=== PATIENT | female | born 1975 | race Caucasian/White ===

== ENCOUNTER 2016-05-25 10:53 | Outpatient (CLI) | payer MEDICAID | END 2016-05-25 10:54 | disposition home or self-care (01) | DX: F90.2 Attention-deficit hyperactivity disorder, combined type (principal) ==

== ENCOUNTER 2017-02-16 08:00 | Outpatient (CLI) | payer MEDICAID ==
[2017-02-16 15:04] LABS: HGB - HEMOGLOBIN 12.7 g/dL (12.0-16.0); MEAN CORPUSCULAR HEMOGLOBIN 28.3 pg (27.0-31.0); MEAN CORPUSCULAR HGB CONC 33.3 g/dL (32.0-36.0); MEAN CORPUSCULAR VOLUME 84.9 fL (81.0-99.0); MEAN PLATELET VOLUME 8.8 fL (7.9-10.8); RED BLOOD COUNT 4.51 10^6/uL (4.20-5.40); RED CELL DISTRIBUTION WIDTH 13.6 % (12.0-15.0); WHITE BLOOD COUNT 6.6 x10^3/uL (4.8-10.8)
[2017-02-16 15:12] LABS: ALBUMIN 3.8 g/dL (3.2-5.5); ALBUMIN/GLOBULIN RATIO 1.1 (1.0-2.2); BILIRUBIN,TOTAL 0.3 mg/dL (0.2-1.0); CALCIUM 9.6 mg/dL (8.5-10.3); CREATININE 0.7 mg/dL (0.4-1.0); TOTAL PROTEIN 7.3 g/dL (6.7-8.2)
== END 2017-02-16 08:01 | disposition home or self-care (01) ==
LOC: LAB.N 08:00
PROVIDERS: ATTEND Nurse Practitioner Psychiatric/Mental Health
DX: F33.1 Major depressive disorder, recurrent, moderate (principal); F90.2 Attention-deficit hyperactivity disorder, combined type
CPT/HCPCS: 36415; 80053; 82306; 84443; 85025

== ENCOUNTER 2018-02-12 02:59 | Outpatient (CLI) | payer MEDICAID | END 2018-02-12 03:00 | disposition critical access hospital (66) | LOC: EMS 02:59 | PROVIDERS: ATTEND Surgery | DX: R09.89 Other specified symptoms and signs involving the circulatory and respiratory systems (principal) | CPT/HCPCS: A0425; A0427; A0999 ==

== ENCOUNTER 2018-03-06 08:00 | Outpatient (CLI) | payer MEDICAID ==
[2018-03-06 14:31] LABS: CHOLESTEROL 234 mg/dL; HDL CHOLESTEROL 39 mg/dL; LDL CHOLESTEROL,CALCULATED 140 mg/dL; LDL/HDL RATIO 3.6 (<4.4); VLDL CHOLESTEROL 55 mg/dL
[2018-03-06 15:32] LABS: HB2 TOTAL 13.6 g/dL; HEMOGLOBIN A1C 0.47 g/dL; HEMOGLOBIN A1C % 5.3 % (4.6-6.2)
== END 2018-03-06 23:59 | disposition home or self-care (01) ==
LOC: LAB.N 08:00
PROVIDERS: ATTEND Physician Assistant Medical
DX: Z00.00 Encounter for general adult medical examination without abnormal findings (principal); R73.9 Hyperglycemia, unspecified
CPT/HCPCS: 36415; 80061; 83036; 83721

== ENCOUNTER 2018-07-20 08:00 | Outpatient (CLI) | payer MEDICAID ==
[2018-07-20 12:42] LABS: HGB - HEMOGLOBIN 10.2 g/dL (12.0-16.0); MEAN CORPUSCULAR HEMOGLOBIN 21.7 pg (27.0-31.0); MEAN CORPUSCULAR HGB CONC 31.7 g/dL (32.0-36.0); MEAN CORPUSCULAR VOLUME 68.3 fL (81.0-99.0); MEAN PLATELET VOLUME 8.8 fL (7.9-10.8); RED BLOOD COUNT 4.68 10^6/uL (4.20-5.40); RED CELL DISTRIBUTION WIDTH 16.5 % (12.0-15.0)
[2018-07-20 13:04] LABS: CRP - C-REACTIVE PROTEIN < 1.0 mg/dL (0-1.0)
[2018-07-20 13:05] LABS: URIC ACID 6.7 mg/dL (2.6-7.2)
== END 2018-07-20 23:59 | disposition home or self-care (01) ==
LOC: LAB.WCP 08:00
PROVIDERS: ATTEND Family Medicine
DX: M79.672 Pain in left foot (principal)
CPT/HCPCS: 36415; 84550; 85027; 85651; 86140; 86200

== ENCOUNTER 2018-07-20 11:05 | Outpatient (CLI) | payer MEDICAID ==
--- NOTE | 2018-07-20 15:22 | XRAY Report ---
Reason: LUMBAR RADICULOPATHY,HIP JOINT PAIN,FOOT PAIN RIGH Procedure Date: 07/20/2018 Accession Number: [id number] / [id number] Procedure: XR - Foot 2 View RT CPT Code: FULL RESULT: EXAM: RIGHT FOOT RADIOGRAPHY EXAM DATE: 07/20/2018 11:34 AM. CLINICAL HISTORY: LUMBAR RADICULOPATHY,HIP JOINT PAIN,FOOT PAIN RIGHT. COMPARISON: None. TECHNIQUE: 2 views. FINDINGS: Bones: Achilles tendon and plantar heel spur. Periosteal thickening second metatarsus which may be from old fracture. Joints: Normal. No subluxations. Soft Tissues: Normal. No soft tissue swelling. IMPRESSION: 1. Heel spurs. If there is clinical concern for fracture 3 views are recommended RADIA
--- NOTE | 2018-07-21 13:26 | XRAY Report ---
Reason: LUMBAR RADICULOPATHY,HIP JOINT PAIN,FOOT PAIN RIGH Procedure Date: 07/20/2018 Accession Number: [id number] / [id number] Procedure: XR - Hip w/Pelvis 2-3V RT CPT Code: FULL RESULT: EXAM: RIGHT HIP RADIOGRAPHY EXAM DATE: 07/20/2018 11:35 AM. CLINICAL HISTORY: LUMBAR RADICULOPATHY,HIP JOINT PAIN,FOOT PAIN RIGH. COMPARISON: 10/13/2014 10:21 AM. TECHNIQUE: 2 views. FINDINGS: Bones: Some osteophytes off of the acetabular rim. There may be some subtle subchondral cystic change in the superior roof of the acetabulum. Bones are otherwise normal. Joints: Normal. No dislocation. The hip joint space is preserved. Soft Tissues: Normal. No soft tissue swelling. IMPRESSION: Some osteophyte spurring off of the acetabular roof, and likely some tiny subchondral cystic change suggests some early osteoarthritis, but no joint space narrowing at this time. No fractures. RADIA
--- NOTE | 2018-07-21 14:13 | XRAY Report ---
Reason: LUMBAR RADICULOPATHY,HIP JOINT PAIN,FOOT PAIN [facility] Procedure Date: 07/20/2018 Accession Number: [id number] / [id number] Procedure: XR - Lumbar Spine 2 View CPT Code: FULL RESULT: EXAM: LUMBOSACRAL SPINE RADIOGRAPHY EXAM DATE: 07/20/2018 11:35 AM. CLINICAL HISTORY: Lumbar radiculopathy, hip joint pain, foot pain, right. COMPARISONS: None. TECHNIQUE: 3 views. FINDINGS: Alignment: Normal. No spondylolisthesis or scoliosis. Bones: There are hypoplastic ribs on T12 with transitional anatomy at the lumbosacral junction best described as transitional L5 which is partially sacralized. No fractures or bone lesions. Disks: There is mild disk space narrowing with mild circumferential osteophyte noted at L2-L3. Facets: No degenerative changes. Sacroiliac Joints: Unremarkable. Soft Tissues: Normal. The visualized bowel gas pattern is normal. IMPRESSION: 1. Hypoplastic ribs on T12 with transitional anatomy at the lumbosacral junction best described as transitional L5, which is partially sacralized. 2. Mild disk space narrowing and dorsal osteophytosis at L2-L3. 3. No fractures appreciated. [facility]IA
== END 2018-07-20 11:06 | disposition home or self-care (01) ==
LOC: DI 11:05
PROVIDERS: ATTEND Family Medicine
DX: M54.16 Radiculopathy, lumbar region (principal); M48.061 Spinal stenosis, lumbar region without neurogenic claudication; M25.78 Osteophyte, vertebrae; M25.551 Pain in right hip; M25.751 Osteophyte, right hip; M79.671 Pain in right foot; M77.31 Calcaneal spur, right foot; M79.672 Pain in left foot
CPT/HCPCS: 36415; 72100; 84550; 85027; 85651; 86140; 86200

== ENCOUNTER 2019-02-19 13:06 | Outpatient (CLI) | payer MEDICAID | END 2019-02-19 23:59 | disposition home or self-care (01) | LOC: LAB.R 13:06 | PROVIDERS: ATTEND Physician Assistant Medical | DX: J02.9 Acute pharyngitis, unspecified (principal) | CPT/HCPCS: 87070 ==

== ENCOUNTER 2019-05-01 13:06 | Outpatient (CLI) | payer MEDICAID | END 2019-05-01 13:07 | disposition home or self-care (01) | LOC: RT 13:06 | PROVIDERS: ATTEND Physician Assistant Medical | DX: J45.909 Unspecified asthma, uncomplicated (principal) | CPT/HCPCS: 94010 ==

== ENCOUNTER 2019-10-25 07:00 | Outpatient (CLI) | payer MEDICAID ==
[2019-10-25 19:59] LABS: H. PYLORIS ANTIGEN STL NEGATIVE (Negative)
== END 2019-10-25 23:59 | disposition home or self-care (01) ==
LOC: LAB.R 07:00
PROVIDERS: ATTEND Nurse Practitioner Family
DX: K21.9 Gastro-esophageal reflux disease without esophagitis (principal)
CPT/HCPCS: 87338

== ENCOUNTER 2020-01-29 11:31 | Outpatient (CLI) | payer MEDICAID ==
--- NOTE | 2020-01-29 14:46 | CT Report ---
PROCEDURE: LUMBAR SPINE WO INDICATIONS: LOW BACK PAIN TECHNIQUE: Noncontrast 3 mm thick sections acquired from the T12 level to the sacrum. Sagittal and coronal refo rmats were constructed. For radiation dose reduction, the following was used: automated exposure co ntrol, adjustment of mA and/or kV according to patient size. COMPARISON: Lumbar spine plain from radiographs 07/21/2018. FINDINGS: Image quality: Excellent. Bones: Transitional anatomy with sacralization of the L5 vertebral body redemonstrated. There is nor mal bony alignment. No acute vertebral body compression fractures. No suspicious lytic or blastic b tali lesions. No pars defects. T12-L1: Normal in appearance. L1-L2: Normal in appearance. L2-L3: Loss of disc height. Vacuum disc phenomenon. Mild, diffuse disc bulge. Mild bilateral facet hypertrophy. Mild narrowing of the central canal. Moderate right and [id number] left neural foraminal narrowing with slight compression of the exiting left L2 nerve root. L3-L4: Disc height is normal. Mild, diffuse disc bulge. Mild bilateral facet hypertrophy. Mild narr owing of the central canal. Severe right and moderate left neural foraminal narrowing with slight com pression of the exiting right L3 nerve root. L4-L5: Slight loss of disc height. Vacuum disc phenomenon. Mild, diffuse disc bulge. Mild bilateral facet hypertrophy. No central stenosis. Severe bilateral neural foraminal narrowing with compression of the exiting L4 nerve roots. L5-S1: No central stenosis. No neural foraminal narrowing. No neural compression. Soft tissues: Possible prominence of the uterus. No retroperitoneal masses or hematomas. Visualized aorta is normal in caliber. IMPRESSION: 1. 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 2. Multilevel degenerative disease. 3. Multilevel facet arthropathy. 4. No significant central canal narrowing. 5. Moderate to severe left L2-L3 neural foraminal narrowing with slight compression of the exiting le ft L2 nerve root. Severe right L3-L4 neural foraminal narrowing with compression of the exiting right L3 nerve root. Severe bilateral L4-L5 neural foraminal narrowing with compression of the exiting lucía ateral L4 nerve roots. 6. Possible prominence of the uterus. Recommend pelvic ultrasound for further evaluation. Reviewed by: Jimena Obregno MD, PhD on 01/29/2020 2:45 PM PST Approved by: Jimena Obregon MD, PhD on 01/29/2020 2:45 PM PST Station ID: [id number]
== END 2020-01-29 11:32 | disposition home or self-care (01) ==
LOC: DI 11:31
PROVIDERS: ATTEND Nurse Practitioner Family
DX: M51.36 Other intervertebral disc degeneration, lumbar region (principal)
CPT/HCPCS: 72131

== ENCOUNTER 2020-02-15 14:19 | Outpatient (CLI) | payer MEDICAID ==
--- NOTE | 2020-02-15 17:15 | Ultrasound Report ---
PROCEDURE: Pelvic w/Transvaginal INDICATIONS: ENLARGED UTERUS TECHNIQUE: Real-time scanning was performed of the pelvic organs, with image documentation. Additional endovagi nal scanning was necessary due to incomplete visualization of the adnexal and endometrial structures by transabdominal scanning. COMPARISON: Correlation is made with lumbar CT, 01/29/2020. FINDINGS: Transabdominal scanning: Limited scanning through the kidneys shows no hydronephrosis. No pathologi c free abdominal or pelvic fluid. Endovaginal scanning: Uterus: Uterus is enlarged, measuring 15.5 x 12.4 x 14.7 cm. The endometrium measures 5 mm in combin ed thickness. Low echogenicity uterine lesions are seen, which are attributed to fibroids and which measure as foll ows: Right anterior uterus, intramural, 8.9 x 4.1 x 4.6 cm Mid posterior uterus, intramural, 7.5 x 8.7 x 8.5 cm Ovaries: The ovary can be seen. Scan quality is limited by body habitus and overlying bowel gas. IMPRESSION: Enlarged, fibroid uterus. Neither ovary can be seen. Reviewed by: Nader Norieag MD on 02/15/2020 4:14 PM [facility] Approved by: Nader Noriega MD on 02/15/2020 4:14 PM [facility] Station ID: [id number]
== END 2020-02-15 14:20 | disposition home or self-care (01) ==
LOC: DI 14:19
PROVIDERS: ATTEND Nurse Practitioner Family
DX: D25.1 Intramural leiomyoma of uterus (principal)

== ENCOUNTER 2020-03-24 08:00 | Outpatient (CLI) | payer MEDICAID | END 2020-03-24 23:59 | disposition home or self-care (01) | LOC: LAB.R 08:00 | PROVIDERS: ATTEND Nurse Practitioner Family | DX: R19.7 Diarrhea, unspecified (principal) | CPT/HCPCS: 81599; 87045; 87046; 87177; 87209; 87427; 87493 ==

== ENCOUNTER 2020-09-08 07:52 | Day surgery (SDC) | payer MEDICAID ==
[~2020-09-08 07:52] MED LIST: ACETAMINOPHEN 1,000 MG/100 ML 100 ML IV ONE; CELECOXIB 100 MG CAPSULE PO ONE; GABAPENTIN 400 MG CAPSULE ONE; ceFAZolin 2 GM/50 ML 2 GM/50 ML BAG IV ONE
[2020-09-08] MEDS ORDERED: LACTATED RINGERS 1,000 ML IV ONE ×2 (08:41→11:44)
[2020-09-08 08:42] LABS: HCT - HEMATOCRIT 27.8 % (37.0-47.0); MEAN CORPUSCULAR HGB CONC 25.2 g/dL (32.0-36.0); MEAN CORPUSCULAR VOLUME 59.4 fL (81.0-99.0); MEAN PLATELET VOLUME 8.8 fL (7.9-10.8); RED BLOOD COUNT 4.68 10^6/uL (4.20-5.40); RED CELL DISTRIBUTION WIDTH 22.1 % (12.0-15.0); WHITE BLOOD COUNT 11.4 x10^3/uL (4.8-10.8)
[2020-09-08 08:43] LABS: HCG UR QUAL NEGATIVE
[2020-09-08] MEDS ORDERED: MIDAZOLAM 2 MG/2 ML VIAL ONE (09:06)
[2020-09-08] MEDS ORDERED: fentaNYL 100 MCG/2 ML VIAL ONE (09:06)
[2020-09-08] MEDS ORDERED: PROPOFOL 200 MG/20 ML VIAL IVP ONE (09:07)
[2020-09-08] MEDS ORDERED: LIDOCAINE-MPF 2% 5 ML VIAL ONE (09:07)
[2020-09-08 09:11] LABS: ALBUMIN/GLOBULIN RATIO 0.9 (1.0-2.2); BILIRUBIN,TOTAL 0.5 mg/dL (0.2-1.0); CALCIUM 9.2 mg/dL (8.5-10.3); CREATININE 0.9 mg/dL (0.4-1.0); POTASSIUM 3.9 mmol/L (3.5-5.0); TOTAL PROTEIN 8.3 g/dL (6.7-8.2)
--- NOTE | 2020-09-08 09:24 | ANESTHESIA ---
Pre-Anesthesia VS, & Labs - Diagnosis menorrhagia, abnormal uterine bleeding - Procedure hysterscopy, D&C Height: 5 ft 5 in Weight (kg): 120.6 kg Body Mass Index: 44.2 BMI Classification: Morbidly Obese - NPO >8 hours - Is Patient ?: No - Lab Results Current Lab Results: Laboratory Tests 09/08/20 08:38: POC Whole Bld Glucose 121 H 09/08/20 08:36: Sodium 136, Potassium 3.9, Chloride 101, Carbon Dioxide 23, Anion Gap 12.0, BUN 15, Creatinine 0.9, Estimated GFR (MDRD) 68 L, Glucose 117 H , Calcium 9.2, Total Bilirubin 0.5, AST 15, ALT 12, Alkaline Phosphatase 62, Total Protein 8.3 H, Albumin 4.0, Globulin 4.3 H, Albumin/Globulin Ratio 0.9 L 09/08/20 08:36: WBC 11.4 H, RBC 4.68, Hgb 7.0 L*, Hct 27.8 L, MCV 59.4 L, MCH 15.0 L, MCHC 25.2 L, RDW 22.1 H, Plt Count 515 H, MPV 8.8 Fish Bones: 09/08/20 08:36 09/08/20 08:36 Home Medications and Allergies Home Medications: Ambulatory Orders Acetaminophen [Tylenol Extra Strength] 500 mg PO 09/07/20 DULoxetine [Cymbalta] 09/07/20 Fluticasone [Flonase] 1 sprays CLARE BID PRN 09/07/20 Meloxicam [Mobic] 1 tablet PO DAILY PRN 09/07/20 Montelukast [Singulair] 10 mg PO QPM 09/07/20 Omeprazole [PriLOSEC] 20 mg PO DAILY 09/07/20 buPROPion [Wellbutrin Xl] 150 mg PO DAILY 09/07/20 Acetaminophen [Tylenol Extra Strength] 500 mg PO 09/07/20 DULoxetine [Cymbalta] 09/07/20 Fluticasone [Flonase] 1 sprays CLARE BID PRN 09/07/20 Meloxicam [Mobic] 1 tablet PO DAILY PRN 09/07/20 Montelukast [Singulair] 10 mg PO QPM 09/07/20 Omeprazole [PriLOSEC] 20 mg PO DAILY 09/07/20 buPROPion [Wellbutrin Xl] 150 mg PO DAILY 09/07/20 Allergies/Adverse Reactions: Allergies Allergy/AdvReac Type Severity Reaction Status Date / Time No Known Drug Allergies Allergy Verified 02/12/18 03:23 Anes History & Medical History - Anesthetic History Anesthesia Complications: reports: No previous complications - Medical History Cardiovascular: reports: None Pulmonary: reports: Asthma Gastrointestinal: reports: GERD Urinary: reports: None Neuro: reports: Headaches Musculoskeletal: reports: None Endocrine/Autoimmune: reports: None Blood Disorders: reports: Anemia Skin: reports: None Smoking Status: Never smoker Psychosocial: reports: Depression History of Cancer?: No - Surgical History Gynecologic: reports: Oophrectomy Exam General: Alert, Oriented x3, Cooperative, No acute distress Dental: WNL Mouth Openin Fingerbreadth Neck Mobility: Normal Mallampati classification: II Thyromental Distance: 4-6 cm Respiratory: Lungs clear, Normal breath sounds, No respiratory distress, No accessory muscle use Cardiovascular: Regular rate, Normal S1, Normal S2, No murmurs Mental/Cognitive Status: Alert/Oriented X3, Normal for patient Plan Anesthesia Type: General Consent for Procedure(s) Verified and Reviewed: Yes Code Status: Attempt Resuscitation ASA classification: 2-Mild systemic disease Is this case an emergency?: No
[2020-09-08] MEDS ORDERED: BUPIVACAINE 0.5% PF 30 ML VIAL ONE (10:07)
[2020-09-08] MEDS ORDERED: LIDOCAINE 2%-EPI 1:100000 20 ML MDV ONE (10:07)
[2020-09-08] MEDS ORDERED: SILVER NITRATE APPLICATOR TOP ONE (10:08)
[2020-09-08] MEDS ORDERED: ONDANSETRON 4 MG/2 ML VIAL IVP PRN (10:32)
[2020-09-08] MEDS ORDERED: NALOXONE 0.4 MG/ML VIAL IVP PRN (10:32)
[2020-09-08] MEDS ORDERED: HYDROmorphone 0.5 MG/0.5 ML SYRINGE IVP PRN ×2 (10:32→11:45)
[2020-09-08] MEDS ORDERED: MORPHINE 2 MG/ML CARPUJECT IVP PRN (10:32)
[2020-09-08] MEDS ORDERED: ATROPINE ABBOJECT 1 MG/10 ML SYRINGE IVP PRN (10:32)
[2020-09-08] MEDS ORDERED: ePHEDrine 50 MG/ML VIAL IVP PRN (10:32)
[2020-09-08] MEDS ORDERED: fentaNYL 100 MCG/2 ML VIAL IVP PRN (10:32)
[2020-09-08] MEDS ORDERED: DEXAMETHASONE 4 MG/ML VIAL ONE (10:54)
[2020-09-08] MEDS ORDERED: LACTATED RINGERS 1,000 ML IV SCH ×2 (11:00→16:00)
[2020-09-08] MEDS ORDERED: LIDOCAINE 2%-EPI 1:100000 20 ML MDV SUBQ ONE (11:04)
[2020-09-08] MEDS ORDERED: BUPIVACAINE 0.5% PF 30 ML VIAL INFIL ONE (11:05)
[2020-09-08] MEDS ORDERED: TRANEXAMIC ACID 1,000 MG/10 ML VIAL ONE (11:36)
[2020-09-08] MEDS ORDERED: METHYLERGONOVINE 0.2 MG/ML VIAL ONE (11:37)
[2020-09-08] MEDS ORDERED: SODIUM CHLORIDE 0.9% 1,000 ML IV ONE (11:45)
[2020-09-08] MEDS ORDERED: KETOROLAC 30 MG/ML VIAL IVP PRN (11:47)
--- NOTE | 2020-09-08 11:51 | OPERATIVE REPORT ---
Operative Report - General Procedure Date: 09/08/20 Planned Procedure: Menorrhagia fibroid uterus Procedure Performed: Hysteroscopy with endometrial sampling with MyoSure Post Op Diagnosis: Submucosal fibroid large - Procedure Note Primary Surgeon: David Loyola MD Anesthesia Provider: Kwaku John CRNA Anesthesia Technique: General LMA Pathology: Endometrial curettings IV Fluids (mL): 900 Estimated Blood Loss (mL): 150 Indications: Menorrhagia Findings: Large 14-week size uterus with a submucosal fibroid Complications: 1000 cc deficit of saline from her hysteroscopy. - Other Other Information/Narrative: Procedure, following adequate general anesthesia via LMA patient was placed in the Dorsal lithotomy in [facility]. At this point she was prepped and draped in the usual fashion. A Timeout was performed at which time concerns were addressed. The concerned about her large fibroid uterus was reviewed. A speculum was then placed in vagina cervix visualized the cervix was noted to reside high in the pelvic cavity. It was grasped with a single-tooth tenaculum. At this point the cervix was identified. 5 cc of 40% Marcaine with epinephrine was injected in both uterosacral ligaments. The uterus was sounded to roughly 8 cm. At this point the hysteroscope was introduced and what appeared to be a false passages noted in the posterior aspect of the endocervical canal. The endocervical canal as well as the endometrial canal was identified and what appeared to be the left cornu was isolated. There was difficulty in viewing the entire endometrial cavity as it was filled predominantly with a submucosal fibroid. At this point the endometrial cavity was sampled with the MyoSure. There is a deficit of roughly 1000 cc of normal saline noted for this reason was determined that ceasing the procedure would be the judicious process. She was then administered 0.4 mg of Methergine IM as well as given TXA intravenous. At this point the cervix was released from the single-tooth tenaculum. There was no evidence of active bleeding at this time. Procedure was terminated patient was taken recovery sponge and needle counts were correct
[2020-09-08 12:10] LABS: HCT - HEMATOCRIT 28.8 % (37.0-47.0); HGB - HEMOGLOBIN 7.5 g/dL (12.0-16.0)
[2020-09-08 12:31] LABS: % IRON SATURATION 36 % (20-50); IRON 151 ug/dL (28-170); TOTAL IRON BINDING CAPACITY 416 ug/dL (250-450); TRANSFERRIN 297 mg/dL (192-382)
[2020-09-08] MEDS: ACETAMINOPHEN 500 MG TABLET PO SCH ×2 (14:44→21:51)
[2020-09-08] MEDS: oxyCODONE 5 MG TABLET PO PRN ×2 (14:44→20:52)
[2020-09-08] MEDS ORDERED: PHENOL THROAT SPRAY 177 ML MM PRN (14:45)
[2020-09-08] MEDS ORDERED: IRON DEXTRAN 1,000 MG in SODIUM CHLORIDE 0.9% 250 ML IV ONE (16:00)
--- NOTE | 2020-09-08 16:02 | ANESTHESIA POST OP EVALUATION ---
Anesthesia Post Eval - Post Anesthesia Eval Vitals: Last Vital Signs Temp 36.6 C 09/08/20 12:56 Pulse 81 09/08/20 12:56 Resp 13 09/08/20 12:56 BP 129/74 09/08/20 12:56 Pulse Ox 97 09/08/20 12:56 CV Function Including HR & BP: Stable Pain Control: Satisfactory Nausea & Vomiting: Negative Mental Status: Baseline Respiratory Status: Airway Patent Hydration Status: Satisfactory Anesthesia Complications: None
[2020-09-08] MEDS: ONDANSETRON 4 MG/2 ML VIAL IVP PRN ×2 (17:11→23:38)
[2020-09-08] MEDS: DOCUSATE SODIUM 100 MG CAPSULE PO SCH (21:51)
[2020-09-09] MEDS: ACETAMINOPHEN 500 MG TABLET PO SCH (05:32)
[2020-09-09] MEDS: DOCUSATE SODIUM 100 MG CAPSULE PO SCH (07:59)
[2020-09-09] MEDS: ONDANSETRON 4 MG/2 ML VIAL IVP PRN (07:59)
[2020-09-09] MEDS: oxyCODONE 5 MG TABLET PO PRN (07:59)
[2020-09-09 08:03] VITALS: BP 113/63
[2020-09-09 08:54] LABS: BASOPHILS # (AUTO) 0.1 10^3/uL (0.0-0.1); BASOPHILS % (AUTO) 0.5 %; EOSINOPHILS # (AUTO) 0.1 10^3/uL (0.0-0.7); EOSINOPHILS % (AUTO) 0.9 %; HCT - HEMATOCRIT 30.7 % (37.0-47.0); HGB - HEMOGLOBIN 8.3 g/dL (12.0-16.0); LYMPHOCYTES # (AUTO) 3.5 10^3/uL (1.5-3.5); LYMPHOCYTES % (AUTO) 28.7 %; MEAN CORPUSCULAR HEMOGLOBIN 17.4 pg (27.0-31.0); MEAN CORPUSCULAR VOLUME 64.2 fL (81.0-99.0); MEAN PLATELET VOLUME 9.1 fL (7.9-10.8); MONOCYTES # (AUTO) 0.6 10^3/uL (0.0-1.0); NEUTROPHILS # (AUTO) 7.8 10^3/uL (1.5-6.6); NEUTROPHILS % (AUTO) 64.1 %; PLT - PLATELET COUNT 450 10^3/uL (130-450); RED BLOOD COUNT 4.78 10^6/uL (4.20-5.40); RED CELL DISTRIBUTION WIDTH 26.5 % (12.0-15.0); WHITE BLOOD COUNT 12.2 x10^3/uL (4.8-10.8)
[2020-09-09 10:01] LABS: PLATELET ESTIMATE, MANUAL NORMAL (130-450,000) (NORMAL); PLATELET MORPHOLOGY NORMAL APPEARANCE (NORMAL); SLIDE REVIEW? Indicated
[2020-09-09 10:02] LABS: WBC MORPHOLOGY (MULTIPLE) NORMAL APPEARANCE (NORMAL)
== END 2020-09-09 10:45 | disposition home or self-care (01) ==
LOC: SDS 07:52 → MS3 14:27 → SDS 09-09 10:45
PROVIDERS: ATTEND Obstetrics & Gynecology
PROC: 0UDB8ZX Extraction of Endometrium, Via Natural or Artificial Opening Endoscopic, Diagnostic (ICD-10-PCS; principal; 2020-09-08 10:30)
DX: N93.9 Abnormal uterine and vaginal bleeding, unspecified (principal); D25.0 Submucous leiomyoma of uterus; N92.0 Excessive and frequent menstruation with regular cycle; E66.01 Morbid (severe) obesity due to excess calories; Z68.41 Body mass index [BMI] 40.0-44.9, adult
CPT/HCPCS: 36415; 58558; 80053; 81025; 83540; 84466; 85014; 85018; 85025; 85027; 86850; 86900; 86901; 86920; 87635; A9270; J0131; J0690; J1750; J2210; J7120; P9016

== ENCOUNTER 2021-02-09 08:10 | Outpatient (CLI) | payer MEDICAID ==
[2021-02-09 14:52] LABS: BASOPHILS # (AUTO) 0.1 10^3/uL (0.0-0.1); BASOPHILS % (AUTO) 0.7 %; EOSINOPHILS # (AUTO) 0.5 10^3/uL (0.0-0.7); EOSINOPHILS % (AUTO) 5.1 %; HCT - HEMATOCRIT 35.3 % (37.0-47.0); HGB - HEMOGLOBIN 9.9 g/dL (12.0-16.0); LYMPHOCYTES # (AUTO) 3.3 10^3/uL (1.5-3.5); LYMPHOCYTES % (AUTO) 31.1 %; MEAN CORPUSCULAR HEMOGLOBIN 20.4 pg (27.0-31.0); MEAN CORPUSCULAR VOLUME 72.6 fL (81.0-99.0); MONOCYTES # (AUTO) 0.7 10^3/uL (0.0-1.0); MONOCYTES % (AUTO) 6.2 %; NEUTROPHILS % (AUTO) 56.5 %; PLT - PLATELET COUNT 429 10^3/uL (130-450); RED BLOOD COUNT 4.86 10^6/uL (4.20-5.40); RED CELL DISTRIBUTION WIDTH 16.9 % (12.0-15.0); WHITE BLOOD COUNT 10.5 x10^3/uL (4.8-10.8)
[2021-02-09 15:25] LABS: ALKALINE PHOSPHATASE 56 IU/L (42-121); ALT ALANINE AMINOTRANSFERASE 14 IU/L (10-60); AST ASPARTATE AMINOTRANSFERASE 15 IU/L (10-42); BILIRUBIN,TOTAL 0.5 mg/dL (0.2-1.0); BUN - BLOOD UREA NITROGEN 14 mg/dL (6-20); CALCIUM 9.1 mg/dL (8.5-10.3); CARBON DIOXIDE - CO2 22 mmol/L (21-32); CHLORIDE 103 mmol/L (101-111); CHOL/HDL RATIO 4.8 (<4.4); CHOLESTEROL 198 mg/dL; CREATININE 0.7 mg/dL (0.4-1.0); GFR - MDRD 91 (>89); GLUCOSE 111 mg/dL (70-100); HDL CHOLESTEROL 41 mg/dL; IRON 17 ug/dL (28-170); LDL CHOLESTEROL,CALCULATED 133 mg/dL; LDL/HDL RATIO 3.2 (<4.4); POTASSIUM 3.9 mmol/L (3.5-5.0); SODIUM 136 mmol/L (135-145); TOTAL PROTEIN 7.9 g/dL (6.7-8.2); TRIGLYCERIDES 118 mg/dL; VLDL CHOLESTEROL 24 mg/dL
[2021-02-09 15:28] LABS: THYROID STIMULATING HORMONE 4.35 uIU/mL (0.34-5.60)
[2021-02-09 15:34] LABS: FERRITIN 4.8 ng/mL (11.0-306.8)
[2021-02-09 15:52] LABS: PLATELET ESTIMATE, MANUAL NORMAL (130-450,000) (NORMAL); PLATELET MORPHOLOGY NORMAL APPEARANCE (NORMAL); SLIDE REVIEW? Indicated; WBC MORPHOLOGY (MULTIPLE) NORMAL APPEARANCE (NORMAL)
[2021-02-09 19:25] LABS: ESTIMATED AVERAGE GLUCOSE 100 mg/dL (70-100); HEMOGLOBIN A1c% 5.1 % (4.27-6.07)
== END 2021-02-09 23:59 | disposition home or self-care (01) ==
LOC: LAB.WCP 08:10
PROVIDERS: ATTEND Internal Medicine
DX: E16.2 Hypoglycemia, unspecified (principal); Z13.220 Encounter for screening for lipoid disorders; N92.6 Irregular menstruation, unspecified; D64.9 Anemia, unspecified; N93.9 Abnormal uterine and vaginal bleeding, unspecified
CPT/HCPCS: 36415; 80053; 80061; 81599; 82728; 83036; 83520; 83540; 83721; 84443; 85025

== ENCOUNTER 2021-03-10 22:30 | Outpatient (CLI) | payer MEDICAID | END 2021-03-10 22:31 | disposition critical access hospital (66) | LOC: EMS 22:30 | DX: U07.1 COVID-19 (principal) | CPT/HCPCS: A0425; A0427; A0999 ==

== ENCOUNTER 2021-03-10 22:48 | Emergency (ER) | payer MEDICAID ==
--- NOTE | 2021-03-11 00:03 | ED Physician Documentation ---
PD HPI DYSPNEA - Stated complaint Stated Complaint: SOA/C+/HX OF ASTHMA - Chief complaint Chief Complaint: Resp - History obtained from History obtained from: Patient - History of Present Illness Timing - onset: How many days ago (onset of fevers, cough, congestion Mar 01 (9 days ago) and has had persistent symptoms. Positive home rapid test for COVID today. Has had increased cough and dyspnea particularly the past 3-4 days. History of asthma.) Timing - onset during: Light activity Timing - duration: Days (9-10) Timing - details: Gradual onset, Still present Inciting event(s): URI (the past 9-10 days). No: Exposure (ie smoke) Improved by: Inhaler/neb (Albuterol inhaler was helping, but not much improvement the past 2-3 days.) Worsened by: Exertion, Coughing Associated symptoms: Fever, Cough, Wheezing. No: Hemoptysis, Bilateral edema Similar symptoms before: Has not had sx before Recently seen: Not recently seen Review of Systems Constitutional: reports: Fever, Chills, Myalgias Nose: reports: Rhinorrhea / runny nose, Congestion Throat: denies: Sore throat Cardiac: reports: Chest pain / pressure (with cough). denies: Palpitations Respiratory: reports: Dyspnea, Cough, Wheezing GI: reports: Diarrhea (mild). denies: Abdominal Pain, Nausea, Vomiting, Constipation : denies: Dysuria, Frequency Skin: denies: Rash, Lesions Neurologic: reports: Generalized weakness. 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 - Present Medications Home Medications: Ambulatory Orders Medication Instructions Recorded Confirmed Albuterol Sulfate [Albuterol 2 puffs IH Q4HR PRN #1 hfa.aer.ad 07/14/14 03/11/21 Sulfate Hfa] Acetaminophen [Tylenol Extra 1 tab PO Q6HR PRN 09/07/20 03/11/21 Strength] Fluticasone [Flonase] 1 sprays CLARE BID PRN 09/07/20 03/11/21 Meloxicam [Mobic] 1 tablet PO DAILY PRN 09/07/20 03/11/21 Montelukast [Singulair] 1 tab PO QPM 09/07/20 03/11/21 Omeprazole [PriLOSEC] 1 tab PO DAILY 09/07/20 03/11/21 buPROPion [Wellbutrin Xl] 300 tab PO DAILY 09/07/20 03/11/21 ARIPiprazole [Abilify] 5 mg PO DAILY 03/11/21 03/11/21 Albuterol Sulf [Ventolin Hfa 2 - 3 puffs INH Q4HR PRN #1 inhaler 03/11/21 Inhaler] Amoxicillin 500 mg PO TID #21 cap 03/11/21 Benzonatate [Tessalon] 100 mg PO TID PRN #20 cap 03/11/21 DULoxetine [Cymbalta] 30 mg PO DAILY 03/11/21 03/11/21 HYDROcod/ACETAM 5/325 [Soldier 5/325] 1 ea PO Q6H PRN #12 tablet 03/11/21 dexAMETHasone [Decadron] 4 mg PO DAILY #7 tablet 03/11/21 - Allergies Allergies/Adverse Reactions: Allergies Allergy/AdvReac Type Severity Reaction Status Date / Time No Known Drug Allergies Allergy Verified 02/12/18 03:23 - Social History Does the pt smoke?: No Smoking Status: Never smoker Does the pt drink ETOH?: Yes Does the pt have substance abuse?: No - Immunizations Immunizations are current?: No Immunizations: TDAP current <10years - POLST Patient has POLST: No PD ED PE NORMAL - Vitals Vital signs reviewed: Yes (initial sats 95% and RR 22.) - General General: Alert and oriented X 3, Well developed/nourished - HEENT HEENT: Ears normal, Pharynx benign. No: Moist mucous membranes - Neck Neck: Supple, no meningeal sign, No adenopathy, No JVD - Cardiac Cardiac: RRR, No murmur - Respiratory Respiratory: No: Clear bilaterally (diffuse wheezing and prolonged expiroatory phase. No coarse sounds per se. ) - Abdomen Abdomen: Soft, Non tender - Back Back: No CVA TTP - Derm Derm: Normal color, Warm and dry - Extremities Extremities: No tenderness to palpate, Normal ROM s pain, No edema, No calf tenderness / cord - Neuro Neuro: Alert and oriented X 3, No motor deficit, Normal speech (able to talk in sentences, though deep breathing effort causes coughing. ) Results - Vitals Vitals: Vital Signs - 24 hr 03/10/21 03/10/21 03/11/21 23:00 23:30 00:44 Temperature 37.9 C Heart Rate 95 92 92 Respiratory 22 16 18 Rate Blood Pressure 143/71 H 127/84 H O2 Saturation 98 95 03/11/21 03/11/21 03/11/21 01:08 01:30 01:47 Temperature 37.5 C Heart Rate 105 H 101 H 98 Respiratory 24 22 18 Rate Blood Pressure 128/77 128/77 O2 Saturation 94 96 03/11/21 03/11/21 03/11/21 02:10 02:26 02:35 Temperature Heart Rate 112 H 102 H Respiratory 21 19 Rate Blood Pressure 133/83 H 133/83 H O2 Saturation 94 93 95 03/11/21 03/11/21 03/11/21 03:14 04:00 05:00 Temperature 36.1 C L 36.1 C L Heart Rate 95 94 87 Respiratory 17 18 18 Rate Blood Pressure 127/71 143/80 H 143/88 H O2 Saturation 94 96 97 03/11/21 06:09 Temperature 36.1 C L Heart Rate 80 Respiratory 19 Rate Blood Pressure 143/97 H O2 Saturation 95 Oxygen O2 Source Room air Oxygen Flow Rate 2 - Labs Labs: Laboratory Tests 03/11/21 03/11/21 03/11/21 00:31 00:31 00:31 WBC 3.8 L RBC 4.38 Hgb 8.2 L Hct 29.0 L MCV 66.2 L MCH 18.7 L MCHC 28.3 L RDW 17.9 H Plt Count 286 MPV 9.9 Neut # (Auto) Not Reportable Lymph # (Auto) Not Reportable [place] # (Auto) Not Reportable Eos # (Auto) Not Reportable Baso # (Auto) Not Reportable Absolute Nucleated RBC Not Reportable Total Counted 100 Band Neuts % (Manual) 13 H Abnorm Lymph % (Manual) 0 Metamyelocytes % 1 H Myelocytes % 2 H Nucleated RBC % Not Reportable Neutrophils # (Manual) 2.8 Lymphocytes # (Manual) 0.9 L Monocytes # (Manual) 0.0 Eosinophils # (Manual) 0.0 Basophils # (Manual) 0.0 Differential Comment MANUAL DIFFERENTIAL Platelet Estimate NORMAL (130-450,000) RBC Morph Micro Appear 1+ OVALOCYTES Sodium 134 L Potassium 3.9 Chloride 100 L Carbon Dioxide 24 Anion Gap 10.0 BUN 10 Creatinine 0.8 Estimated GFR (MDRD) 78 L Glucose 114 H Calcium 8.5 Total Bilirubin 0.3 AST 27 ALT 18 Alkaline Phosphatase 49 B-Natriuretic Peptide 10 Total Protein 7.6 Albumin 3.5 Globulin 4.1 Albumin/Globulin Ratio 0.9 L Lipase 28 Nasal Adenovirus (PCR) Nasal B. parapertussis DNA (PCR) Nasal Coronavir 229E PCR Nasal Coronavir HKU1 PCR Nasal Coronavir NL63 PCR Nasal Coronavir OC43 PCR Nasal Enterovir/Rhinovir PCR Nasal Influenza B PCR Nasal Influenza A PCR Nasal Parainfluen 1 PCR Nasal Parainfluen 2 PCR Nasal Parainfluen 3 PCR Nasal Parainfluen 4 PCR Nasal RSV (PCR) Nasal B.pertussis DNA PCR Nasal C.pneumoniae (PCR) Clare Human Metapneumo PCR Nasal M.pneumoniae (PCR) Nasal SARS-CoV-2 (PCR) 03/11/21 01:00 WBC RBC Hgb Hct MCV MCH MCHC RDW Plt Count MPV Neut # (Auto) Lymph # (Auto) [place] # (Auto) Eos # (Auto) Baso # (Auto) Absolute Nucleated RBC Total Counted Band Neuts % (Manual) Abnorm Lymph % (Manual) Metamyelocytes % Myelocytes % Nucleated RBC % Neutrophils # (Manual) Lymphocytes # (Manual) Monocytes # (Manual) Eosinophils # (Manual) Basophils # (Manual) Differential Comment Platelet Estimate RBC Morph Micro Appear Sodium Potassium Chloride Carbon Dioxide Anion Gap BUN Creatinine Estimated GFR (MDRD) Glucose Calcium Total Bilirubin AST ALT Alkaline Phosphatase B-Natriuretic Peptide Total Protein Albumin Globulin Albumin/Globulin Ratio Lipase Nasal Adenovirus (PCR) NOT DETECTED Nasal B. parapertussis DNA (PCR) NOT DETECTED Nasal Coronavir 229E PCR NOT DETECTED Nasal Coronavir HKU1 PCR NOT DETECTED Nasal Coronavir NL63 PCR NOT DETECTED Nasal Coronavir OC43 PCR NOT DETECTED Nasal Enterovir/Rhinovir PCR NOT DETECTED Nasal Influenza B PCR NOT DETECTED Nasal Influenza A PCR NOT DETECTED Nasal Parainfluen 1 PCR NOT DETECTED Nasal Parainfluen 2 PCR NOT DETECTED Nasal Parainfluen 3 PCR NOT DETECTED Nasal Parainfluen 4 PCR NOT DETECTED Nasal RSV (PCR) NOT DETECTED Nasal B.pertussis DNA PCR NOT DETECTED Nasal C.pneumoniae (PCR) NOT DETECTED Clare Human Metapneumo PCR NOT DETECTED Nasal M.pneumoniae (PCR) NOT DETECTED Nasal SARS-CoV-2 (PCR) DETECTED A - Rads (name of study) chest xray Radiology: Prelim report reviewed (no acute infiltrates) PD MEDICAL DECISION MAKING - ED course Complexity details: re-evaluated patient (Pain and feels able to take better breaths. Oximeter however is showing decreasing saturations.), considered differential (improved wheezing and less cough, but sats are wavering from 90- 94% RA. This did decrease actually after third neb treatment, and is at 88-90% RA at this time. ), d/w patient, other ED course: With upper respiratory symptoms for the past 9 to 10 days. Having persistent fevers and cough. History of asthma. Consideration for secondary bacterial infection versus persistent viral pneumonitis. She had had a rapid antigen test positive at home for COVID. Her chest x-ray does not look that bad. At this point consider the effect of COVID with likely exacerbation of asthma. Given nebulizer treatments here in the ER and her wheezing decreased and her breathing improved. However she is now running borderline hypoxic at times down to 88 to 90% then up to 92 to 94%. She is placed on 2 L nasal cannula. At this point would consider hospitalization given mild hypoxia with wheezing and COVID. However there are no beds at our hospital at this point. We can hold her in the ER to see if any beds open in the morning as transferring would be difficult with tight bed status and other facilities. Decision point at about 2:30 in the morning would be possible hospitalization but no beds available at this time. Reassessed few hours later, and her breathing is feeling improved more. Sats are to 96-99% so tried off oxygen and then ambulated without oxygen and maintaining 96% sats. She feels okay with walking. At this point, would not need hospitalization per se. Can treat with Albuterol, steroids, tessalon. With continued illness for 9-10 days, and cough, with history of Asthma, consider also bacterial co-infection with the COVID. Departure - Departure Disposition: 01 Home, Self Care Clinical Impression: COVID-19 virus infection, Anemia Dyspnea Qualifiers: Dyspnea type: shortness of breath Qualified Code(s): R06.02 - Shortness of breath; R06.00 - Dyspnea, unspecified; R06.01 - Orthopnea Exacerbation of asthma Qualifiers: Asthma severity: mild Asthma persistence: intermittent Qualified Code(s): J45.21 - Mild intermittent asthma with (acute) exacerbation Acute bronchitis Qualifiers: Bronchitis organism: unspecified organism Qualified Code(s): J20.9 - Acute bronchitis, unspecified Condition: Stable Record reviewed to determine appropriate education?: Yes Instructions: ED Upper Resp Infec Abx Tx Prescriptions: Albuterol Sulf [Ventolin Hfa Inhaler] 2 - 3 puffs INH Q4HR PRN #1 inhaler PRN Reason: Shortness Of Air/Wheezing Amoxicillin 500 mg PO TID #21 cap dexAMETHasone [Decadron] 4 mg PO DAILY #7 tablet HYDROcod/ACETAM 5/325 [Soldier 5/325] 1 ea PO Q6H PRN #12 tablet PRN Reason: Pain Benzonatate [Tessalon] 100 mg PO TID PRN #20 cap PRN Reason: Cough Comments: Your chest x-ray did not show any signs of obvious pneumonia. It does seem like you have bronchial symptoms with the COVID infection and this is exacerbating your asthma. There could be some element of bacterial bronchitis as well given the duration of your symptoms. Stay well-hydrated. Use your albuterol inhaler 2 to 3 puffs 4 times a day regularly for the next several days to week and then resume as needed. Decadron steroid daily for the next week as well to help with airway inflammation. Tessalon/benzonatate as directed for cough. Use Tylenol every 4-6 hours if needed for pains. Additionally you could use hydrocodone every 4-6 hours if needed for pain of the chest with cough etc. Given the potential for some bacterial coinfection, we can also prescribe you some amoxicillin 3 times a day for 5 days. I would anticipate improvement over the next few days. Recheck if not improving well on return if worsening symptoms and trouble breathing. I transmitted your prescriptions to [facility] pharmacy. My narcotic instructions I am prescribing a short course of narcotic pain medication for you. These are potentially dangerous and addictive medications that should be used carefully. These medications may constipate you. Take an rydk-pqj-irxvzab stool softener such as docusate twice daily with plenty of water while taking these m edications. If you go 24 hours without a bowel movement, take jjom-qqi-clzerks MiraLAX, per package instructions. Do not drink or drive while taking these medications. If you received narcotic or sedating medications while in the emergency department do not drive for 24 hours. Store this medication in a safe, secure place and out of reach of children. It is a violation of federal law to give or sell this medication to another person or to use in a manner other than prescribed. The ED will not refill narcotic prescriptions, including prescriptions lost or stolen. You can dispose of unwanted medications at the [facility]'s office or at several pharmacies such as [facility].
[2021-03-11] MEDS ORDERED: IPRATROPIUM/ALBUTEROL 3 ML NEB INH STA (00:18)
[2021-03-11] MEDS ORDERED: BENZONATATE 100 MG CAPSULE PO STA (00:18)
[2021-03-11] MEDS ORDERED: KETOROLAC 30 MG/ML VIAL IVP STA (00:18)
[2021-03-11 00:41] LABS: BASOPHILS % (AUTO) 0.3 %; EOSINOPHILS % (AUTO) 0.3 %; HGB - HEMOGLOBIN 8.2 g/dL (12.0-16.0); LYMPHOCYTES % (AUTO) 25.4 %; MEAN CORPUSCULAR HEMOGLOBIN 18.7 pg (27.0-31.0); MEAN CORPUSCULAR HGB CONC 28.3 g/dL (32.0-36.0); MEAN CORPUSCULAR VOLUME 66.2 fL (81.0-99.0); MEAN PLATELET VOLUME 9.9 fL (7.9-10.8); MONOCYTES % (AUTO) 3.4 %; NEUTROPHILS % (AUTO) 70.1 %; PLT - PLATELET COUNT 286 10^3/uL (130-450); RED BLOOD COUNT 4.38 10^6/uL (4.20-5.40); RED CELL DISTRIBUTION WIDTH 17.9 % (12.0-15.0); WHITE BLOOD COUNT 3.8 x10^3/uL (4.8-10.8)
--- NOTE | 2021-03-11 00:45 | XRAY Report ---
PROCEDURE: Chest 1 View X-Ray INDICATIONS: cough and dyspnea TECHNIQUE: One view of the chest was acquired. COMPARISON: 01/29/2014 FINDINGS: Surgical changes and devices: None. Lungs and pleura: No pleural effusions or pneumothorax. Mildly increased bronchovascular markings in bilateral hilar region are seen with mild bronchial wall thickening. No definite focal infiltrate. M ediastinum: Mediastinal contours appear normal. Heart size is normal. Bones and chest wall: No suspicious bony lesions. Overlying soft tissues appear unremarkable. IMPRESSION: Finding is suggestive of mild reactive airway disease such as bronchitis or asthma. No definite focal infiltrate. No pleural effusion or pneumothorax. Reviewed by: Maynor Steele MD on 03/11/2021 12:44 AM PST Approved by: Maynor Steele MD on 03/11/2021 12:44 AM PST Station ID: [id number]
[2021-03-11 00:47] LABS: ABNORMAL LYMPHS % (MANUAL) 0 %
[2021-03-11 00:55] LABS: ALBUMIN 3.5 g/dL (3.2-5.5); ALBUMIN/GLOBULIN RATIO 0.9 (1.0-2.2); BILIRUBIN,TOTAL 0.3 mg/dL (0.2-1.0); CALCIUM 8.5 mg/dL (8.5-10.3); CREATININE 0.8 mg/dL (0.4-1.0); POTASSIUM 3.9 mmol/L (3.5-5.0); TOTAL PROTEIN 7.6 g/dL (6.7-8.2)
[2021-03-11 01:12] LABS: BAND NEUTROPHILS % (MANUAL) 13 %; LYMPHOCYTES # (MANUAL) 0.9 10^3/uL (1.5-3.5); LYMPHOCYTES % (MANUAL) 23 %; METAMYELOCYTES % (MANUAL) 1 %; MYELOCYTES % (MANUAL) 2 %; NEUTROPHILS # (MANUAL) 2.8 10^3/uL (1.5-6.6)
[2021-03-11 01:13] LABS: DIFFERENTIAL COMMENT MANUAL DIFFERENTIAL; PLATELET ESTIMATE, MANUAL NORMAL (130-450,000) (NORMAL)
[2021-03-11] MEDS ORDERED: ALBUTEROL NEB 2.5 MG/3 ML INH STA (01:36)
[2021-03-11] MEDS ORDERED: ACETAMINOPHEN 500 MG TABLET PO STA (01:36)
[2021-03-11] MEDS ORDERED: HYDROmorphone 1 MG/ML CARPUJECT IVP STA (01:37)
[2021-03-11 02:36] LABS: CORONAVIRUS 229E-RESP PCR NOT DETECTED; CORONAVIRUS HKU1-RESP PCR NOT DETECTED; CORONAVIRUS NL63-RESP PCR NOT DETECTED; CORONAVIRUS OC43-RESP PCR NOT DETECTED
[2021-03-11 02:37] LABS: B. PARAPERTUSSIS- RESP PCR PAN NOT DETECTED; B. PERTUSSIS- RESP PCR PANEL NOT DETECTED; C. PNEUMONIAE- RESP PCR PANEL NOT DETECTED; HUMAN METAPNEUMOVIRUS NOT DETECTED; INFLUENZA A- RESP PCR PANEL NOT DETECTED; INFLUENZA B - RESP PCR PANEL NOT DETECTED; M. PNEUMONIAE- RESP PCR PANEL NOT DETECTED; PARAINFLUENZA VIRUS 1 NOT DETECTED; PARAINFLUENZA VIRUS 2 NOT DETECTED; PARAINFLUENZA VIRUS 3 NOT DETECTED; PARAINFLUENZA VIRUS 4 NOT DETECTED; RHINOVIRUS/ENTEROVIRUS NOT DETECTED; RSV- RESP PCR PANEL NOT DETECTED; SARS-CoV-2 -RESP PCR PANEL DETECTED
[2021-03-11] MEDS ORDERED: AMOXICILLIN 250 MG CAPSULE PO STA (03:02)
[2021-03-11] MEDS ORDERED: HYDROmorphone 0.5 MG/0.5 ML SYRINGE IVP STA (06:13)
[2021-03-11] MEDS ORDERED: ACETAMINOPHEN 325 MG TABLET PO STA (06:13)
[2021-03-11 07:13] VITALS: BP 133/90
== END 2021-03-11 07:13 | disposition home or self-care (01) ==
LOC: EDUNIT# → ED 22:48
DX: U07.1 COVID-19 (principal); J20.9 Acute bronchitis, unspecified; J45.21 Mild intermittent asthma with (acute) exacerbation; R09.02 Hypoxemia; D64.9 Anemia, unspecified
CPT/HCPCS: 0202U; 36415; 71045; 80053; 83690; 83880; 85025; 94640; 94664; 96374; 96375; 96376; 99284; 99285; A9270; J1170

== ENCOUNTER 2021-03-11 07:26 | Outpatient (CLI) | payer MEDICAID | END 2021-03-11 07:27 | disposition home or self-care (01) | LOC: EMS 07:26 | PROVIDERS: ATTEND Emergency Medicine | DX: U07.1 COVID-19 (principal) | CPT/HCPCS: A0425; A0428 ==

== ENCOUNTER 2021-03-19 14:18 | Outpatient (CLI) | payer MEDICAID | END 2021-03-19 14:19 | disposition critical access hospital (66) | LOC: EMS 14:18 | DX: K14.0 Glossitis (principal) | CPT/HCPCS: A0425; A0429 ==

== ENCOUNTER 2021-03-19 14:36 | Emergency (ER) | payer MEDICAID ==
--- NOTE | 2021-03-19 14:45 | ED Physician Documentation ---
PD HPI HEENT - Stated complaint Stated Complaint: TOUNGE SWELLING - Chief complaint Chief Complaint: Heent - History obtained from History obtained from: Patient - Additional information Additional information: 46-year-old woman who recently had COVID woke up with diffuse tongue swelling today. She is never had this before. There were no new exposures. She is not on any DEAN inhibitors. It is both painful and swollen. no allergic exposures that she knows of. No rashes. No diffuse itching. No shortness of breath. No stomach issues. 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 - Present Medications Home Medications: Ambulatory Orders Medication Instructions Recorded Confirmed Albuterol Sulfate [Albuterol 2 puffs IH Q4HR PRN #1 hfa.aer.ad 07/14/14 03/11/21 Sulfate Hfa] Acetaminophen [Tylenol Extra 1 tab PO Q6HR PRN 09/07/20 03/11/21 Strength] Fluticasone [Flonase] 1 sprays CLARE BID PRN 09/07/20 03/11/21 Meloxicam [Mobic] 1 tablet PO DAILY PRN 09/07/20 03/11/21 Montelukast [Singulair] 1 tab PO QPM 09/07/20 03/11/21 Omeprazole [PriLOSEC] 1 tab PO DAILY 09/07/20 03/11/21 buPROPion [Wellbutrin Xl] 300 tab PO DAILY 09/07/20 03/11/21 ARIPiprazole [Abilify] 5 mg PO DAILY 03/11/21 03/11/21 Albuterol Sulf [Ventolin Hfa 2 - 3 puffs INH Q4HR PRN #1 inhaler 03/11/21 Inhaler] Amoxicillin 500 mg PO TID #21 cap 03/11/21 Benzonatate [Tessalon] 100 mg PO TID PRN #20 cap 03/11/21 DULoxetine [Cymbalta] 30 mg PO DAILY 03/11/21 03/11/21 HYDROcod/ACETAM 5/325 [Adel 5/325] 1 ea PO Q6H PRN #12 tablet 03/11/21 dexAMETHasone [Decadron] 4 mg PO DAILY #7 tablet 03/11/21 HYDROcod/ACETAM 5/325 [Adel 5/325] 1 - 2 tab PO Q6H PRN #10 tablet 03/19/21 predniSONE [Deltasone] 60 mg PO DAILY 5 Days #15 tablet 03/19/21 - Allergies Allergies/Adverse Reactions: Allergies Allergy/AdvReac Type Severity Reaction Status Date / Time No Known Drug Allergies Allergy Verified 03/19/21 14:44 - Social History Does the pt smoke?: No Smoking Status: Never smoker Does the pt drink ETOH?: Yes Does the pt have substance abuse?: No - Immunizations Immunizations are current?: No Immunizations: TDAP current <10years - POLST Patient has POLST: No PD ED PE NORMAL - Vitals Vital signs reviewed: Yes - General General: Alert and oriented X 3, No acute distress - HEENT HEENT: PERRL, EOMI, Other (Very mild diffuse angioedema of the tongue but the posterior oropharynx is widely visualized.) - Respiratory Respiratory: No respiratory distress, Clear bilaterally - Derm Derm: No rash - Neuro Neuro: Alert and oriented X 3, Normal speech Results - Vitals Vitals: Vital Signs - 24 hr 03/19/21 14:41 Temperature 36.3 C L Heart Rate 94 Respiratory 16 Rate Blood Pressure 148/88 H O2 Saturation 97 Oxygen O2 Source Room air - Labs Labs: Laboratory Tests 03/19/21 03/19/21 15:00 15:00 WBC 12.5 H RBC 4.48 Hgb 8.9 L Hct 31.6 L MCV 70.5 L MCH 19.9 L MCHC 28.2 L RDW 22.2 H Plt Count 488 H MPV 9.9 Neut # (Auto) 7.3 H Lymph # (Auto) 3.9 H Page # (Auto) 0.9 Eos # (Auto) 0.2 Baso # (Auto) 0.0 Absolute Nucleated RBC 0.00 Nucleated RBC % 0.0 Manual Slide Review Indicated Platelet Estimate INCREASED (>450,000) Platelet Morphology NORMAL APPEARANCE RBC Morph Micro Appear 2+ HYPOCHROMASIA Sodium 136 Potassium 3.7 Chloride 103 Carbon Dioxide 24 Anion Gap 9.0 BUN 15 Creatinine 0.7 Estimated GFR (MDRD) 90 Glucose 84 Calcium 8.9 PD MEDICAL DECISION MAKING - ED course ED course: 46-year-old woman with mild angioedema of the tongue, posterior oropharynx is widely patent without phonation changes. She was observed and given steroids, oral lidocaine here. There was improvement in her examination on serial exams. She is not on DEAN inhibitor's and the trigger was unknown. No evidence of Yahaira's angina. Departure - Departure Disposition: 01 Home, Self Care Clinical Impression: COVID-19 virus infection Anemia Qualifiers: Anemia type: unspecified type Qualified Code(s): D64.9 - Anemia, unspecified Angio-edema Qualifiers: Encounter type: initial encounter Qualified Code(s): T78.3XXA - Angioneurotic edema, initial encounter Condition: Good Record reviewed to determine appropriate education?: Yes Instructions: ED Angioedema Prescriptions: predniSONE [Deltasone] 60 mg PO DAILY 5 Days #15 tablet HYDROcod/ACETAM 5/325 [Adel 5/325] 1 - 2 tab PO Q6H PRN #10 tablet PRN Reason: Pain Comments: I sent your prescription electronically to [facility] in [place]. Return for new or worsening symptoms. Follow-up with your doctor on Monday for recheck. I am prescribing a short course of narcotic pain medication for you. These are potentially dangerous and addictive medications that should be used carefully. These medications may constipate you. Take an zzjy-rcc-jwlzaak stool softener (docusate) twice daily with plenty of water while taking these medications. If you go 24 hours without a bowel movement, take mslw-xnu-dxsleig miralax, per package instructions. Do not drink or drive while taking these medications. If you received narcotic or sedating medications while in the emergency department, do not drive for 24 hours. Store this medication in a safe, secure place and out of reach of children. It is a violation of federal law to give or sell this medication to another person or to use in a manner other than prescribed. The ED will not refill narcotic prescriptions, including prescriptions lost or stolen. To dispose of unwanted medications: 1. [facility] at [address] in [place] has a medication drop box. They accept prescription medications (in pill form) Monday through Monday 9:00 a.m. to 5:00 p.m. 2. [facility] [employer] accepts prescription medications (in pill form only) for disposal year round. Call for more information. 3. Contact the [facility] for the next [facility] sponsored prescription drug collection event. , [phone], or [phone]; Note that many narcotic pain relievers also contain Tylenol/acetaminophen. Please ensure that your total dose of acetaminophen from all sources does not exceed 3 g (3000 mg) per day.
[2021-03-19] MEDS: LIDOCAINE VISCOUS 2% 15 ML UDC MM STA (15:05)
[2021-03-19] MEDS: DEXAMETHASONE 10 MG/ML VIAL IVP STA (15:05)
[2021-03-19 15:12] LABS: BASOPHILS % (AUTO) 0.3 %; EOSINOPHILS # (AUTO) 0.2 10^3/uL (0.0-0.7); EOSINOPHILS % (AUTO) 1.2 %; HCT - HEMATOCRIT 31.6 % (37.0-47.0); HGB - HEMOGLOBIN 8.9 g/dL (12.0-16.0); LYMPHOCYTES # (AUTO) 3.9 10^3/uL (1.5-3.5); MEAN CORPUSCULAR HEMOGLOBIN 19.9 pg (27.0-31.0); MEAN CORPUSCULAR HGB CONC 28.2 g/dL (32.0-36.0); MEAN CORPUSCULAR VOLUME 70.5 fL (81.0-99.0); MEAN PLATELET VOLUME 9.9 fL (7.9-10.8); MONOCYTES # (AUTO) 0.9 10^3/uL (0.0-1.0); MONOCYTES % (AUTO) 6.8 %; NEUTROPHILS # (AUTO) 7.3 10^3/uL (1.5-6.6); NEUTROPHILS % (AUTO) 58.6 %; PLT - PLATELET COUNT 488 10^3/uL (130-450); RED BLOOD COUNT 4.48 10^6/uL (4.20-5.40); RED CELL DISTRIBUTION WIDTH 22.2 % (12.0-15.0); SLIDE REVIEW? Indicated; WHITE BLOOD COUNT 12.5 x10^3/uL (4.8-10.8)
[2021-03-19] MEDS: diphenhydrAMINE INJ 50 MG/ML VIAL IVP STA (15:13)
[2021-03-19 15:19] LABS: CALCIUM 8.9 mg/dL (8.5-10.3); CREATININE 0.7 mg/dL (0.4-1.0); POTASSIUM 3.7 mmol/L (3.5-5.0)
[2021-03-19 15:34] LABS: PLATELET ESTIMATE, MANUAL INCREASED (>450,000) (NORMAL); PLATELET MORPHOLOGY NORMAL APPEARANCE (NORMAL)
[2021-03-19] MEDS: HYDROmorphone 1 MG/ML CARPUJECT IVP STA (15:48)
[2021-03-19 15:59] VITALS: BP 140/87
== END 2021-03-19 18:30 | disposition home or self-care (01) ==
LOC: EDUNIT# → ED 14:36
DX: T78.3XXA Angioneurotic edema, initial encounter (principal); U07.1 COVID-19; D64.9 Anemia, unspecified
CPT/HCPCS: 36415; 80048; 85025; 96374; 96375; 99282; 99283; J1170; J1200

== ENCOUNTER 2021-06-14 08:24 | Outpatient (CLI) | payer MEDICAID ==
[2021-06-14 08:40] LABS: BASOPHILS # (AUTO) 0.1 10^3/uL (0.0-0.1); BASOPHILS % (AUTO) 0.7 %; EOSINOPHILS # (AUTO) 0.2 10^3/uL (0.0-0.7); EOSINOPHILS % (AUTO) 3.2 %; HCT - HEMATOCRIT 29.5 % (37.0-47.0); HGB - HEMOGLOBIN 7.7 g/dL (12.0-16.0); LYMPHOCYTES # (AUTO) 2.3 10^3/uL (1.5-3.5); LYMPHOCYTES % (AUTO) 33.8 %; MEAN CORPUSCULAR HEMOGLOBIN 16.5 pg (27.0-31.0); MEAN CORPUSCULAR HGB CONC 26.1 g/dL (32.0-36.0); MEAN CORPUSCULAR VOLUME 63.3 fL (81.0-99.0); MEAN PLATELET VOLUME 9.2 fL (7.9-10.8); MONOCYTES # (AUTO) 0.4 10^3/uL (0.0-1.0); MONOCYTES % (AUTO) 6.3 %; NEUTROPHILS # (AUTO) 3.8 10^3/uL (1.5-6.6); NEUTROPHILS % (AUTO) 55.7 %; PLT - PLATELET COUNT 408 10^3/uL (130-450); RED BLOOD COUNT 4.66 10^6/uL (4.20-5.40); RED CELL DISTRIBUTION WIDTH 19.1 % (12.0-15.0); WHITE BLOOD COUNT 6.8 x10^3/uL (4.8-10.8)
[2021-06-14 08:52] LABS: HCG UR QUAL NEGATIVE
[2021-06-14 09:02] LABS: SLIDE REVIEW? Indicated
[2021-06-14 13:07] LABS: ESTIMATED AVERAGE GLUCOSE 103 mg/dL (70-100); HEMOGLOBIN A1c% 5.2 % (4.27-6.07)
[2021-06-15 05:23] LABS: BASOPHILS % (AUTO) 0.5 %; EOSINOPHILS # (AUTO) 0.2 10^3/uL (0.0-0.7); EOSINOPHILS % (AUTO) 2.9 %; HCT - HEMATOCRIT 29.9 % (37.0-47.0); HGB - HEMOGLOBIN 8.3 g/dL (12.0-16.0); LYMPHOCYTES % (AUTO) 39.4 %; MEAN CORPUSCULAR HGB CONC 27.8 g/dL (32.0-36.0); MEAN PLATELET VOLUME 9.5 fL (7.9-10.8); MONOCYTES # (AUTO) 0.6 10^3/uL (0.0-1.0); MONOCYTES % (AUTO) 7.6 %; NEUTROPHILS # (AUTO) 3.7 10^3/uL (1.5-6.6); NEUTROPHILS % (AUTO) 49.3 %; PLT - PLATELET COUNT 341 10^3/uL (130-450); RED CELL DISTRIBUTION WIDTH 21.2 % (12.0-15.0); WHITE BLOOD COUNT 7.6 x10^3/uL (4.8-10.8)
[2021-06-15 05:26] LABS: SLIDE REVIEW? Indicated
[2021-06-15 05:45] LABS: PLATELET ESTIMATE, MANUAL NORMAL (130-450,000) (NORMAL); PLATELET MORPHOLOGY NORMAL APPEARANCE (NORMAL)
[2021-06-15 05:46] LABS: WBC MORPHOLOGY (MULTIPLE) NORMAL APPEARANCE (NORMAL)
== END 2021-06-14 08:25 | disposition home or self-care (01) ==
LOC: LAB 08:24
PROVIDERS: ATTEND Obstetrics & Gynecology
DX: Z01.812 Encounter for preprocedural laboratory examination (principal); D25.9 Leiomyoma of uterus, unspecified; Z20.822 Contact with and (suspected) exposure to COVID-19
CPT/HCPCS: 36415; 81025; 83036; 85025; 86850; 86900; 86901

== ENCOUNTER 2021-06-14 18:39 | Inpatient (IN) | payer MEDICAID ==
[2021-06-14] MEDS ORDERED: ACETAMINOPHEN 325 MG TABLET PO PRN (19:14)
[2021-06-14] MEDS ORDERED: SODIUM CHLORIDE FLUSH 0.9% 10 ML SYRINGE IVP PRN (19:14)
[2021-06-14] MEDS ORDERED: diphenhydrAMINE 25 MG CAPSULE PO PRN (19:19)
[2021-06-15] MEDS: SODIUM CHLORIDE FLUSH 0.9% 10 ML SYRINGE IVP SCH ×3 (00:50→17:44)
[2021-06-15] MEDS ORDERED: VASOPRESSIN 20 UNIT/ML VIAL ONE (07:04)
[2021-06-15] MEDS ORDERED: ATROPINE ABBOJECT 1 MG/10 ML SYRINGE IVP PRN (07:22)
[2021-06-15] MEDS ORDERED: NALOXONE 0.4 MG/ML VIAL IVP PRN (07:22)
[2021-06-15] MEDS ORDERED: fentaNYL 100 MCG/2 ML VIAL IVP PRN (07:22)
[2021-06-15] MEDS ORDERED: MORPHINE 2 MG/ML CARPUJECT IVP PRN (07:22)
[2021-06-15] MEDS ORDERED: HYDROmorphone 0.5 MG/0.5 ML SYRINGE IVP PRN (07:22)
[2021-06-15] MEDS ORDERED: ONDANSETRON 4 MG/2 ML VIAL IVP PRN (07:22)
[2021-06-15] MEDS ORDERED: ePHEDrine 50 MG/ML VIAL IVP PRN (07:22)
[2021-06-15] MEDS ORDERED: METOCLOPRAMIDE 10 MG/2 ML VIAL IVP PRN (07:22)
--- NOTE | 2021-06-15 07:22 | ANESTHESIA ---
Pre-Anesthesia VS, & Labs - Diagnosis uterine leiomyoma - Procedure abdominal myomectomy Vital Signs: Temp Pulse Resp BP Pulse Ox 36.9 C 71 17 127/79 97 06/15/21 05:54 06/15/21 05:54 06/15/21 05:54 06/15/21 05:54 06/15/21 05:54 Height: 5 ft 6 in Weight (kg): 122.969 kg Body Mass Index: 43.7 BMI Classification: Morbidly Obese - NPO >8 hours - Is Patient ?: No - Lab Results Current Lab Results: Laboratory Tests 06/14/21 19:35: Blood Type O POSITIVE, Antibody Screen NEGATIVE, Crossmatch IS Only See Detail Lab results reviewed: Yes Home Medications and Allergies Home Medications: Ambulatory Orders Budesonide/Formoterol Fumarate [Symbicort 160-4.5 Mcg Inhaler] 2 puffs PO BID 06/10/21 Active Medications Acetaminophen (Acetaminophen 325 Mg Tablet) 650 mg PO Q4HR PRN PRN Reason: Pain 1 to 4, or Fever Diphenhydramine HCl (Diphenhydramine 25 Mg Capsule) 25 mg PO Q4HR PRN PRN Reason: ITCHING Ondansetron HCl (Ondansetron Odt 4 Mg Tablet) 4 mg TL Q6H PRN PRN Reason: Nausea / Vomiting Sodium Chloride (Sodium Chloride Flush 0.9% 10 Ml Syringe) 10 ml IVP PRN PRN PRN Reason: NEEDED PER PROVIDER ORDERS Sodium Chloride (Sodium Chloride Flush 0.9% 10 Ml Syringe) 10 ml IVP 0100,0900,1700 DUC Last Admin: 06/15/21 00:50 Dose: 10 ml Acetaminophen [Tylenol Extra Strength] 500 mg PO Q6HR PRN 09/07/20 Fluticasone [Flonase] 1 sprays CLARE BID PRN 09/07/20 Meloxicam [Mobic] 15 mg PO DAILY PRN 09/07/20 Montelukast [Singulair] 10 mg PO QPM 09/07/20 Omeprazole [PriLOSEC] 20 mg PO DAILY 09/07/20 buPROPion [Wellbutrin Xl] 300 tab PO DAILY 09/07/20 ARIPiprazole [Abilify] 5 mg PO DAILY 03/11/21 DULoxetine [Cymbalta] 30 mg PO DAILY 03/11/21 Budesonide/Formoterol Fumarate [Symbicort 160-4.5 Mcg Inhaler] 2 puffs PO BID 06/10/21 Allergies/Adverse Reactions: Allergies Allergy/AdvReac Type Severity Reaction Status Date / Time No Known Drug Allergies Allergy Verified 03/19/21 14:44 Anes History & Medical History - Anesthetic History Anesthesia Complications: reports: No previous complications Family history of Anesthesia Complications: Denies Family history of Malignant Hyperthermia: Denies - Medical History Cardiovascular: reports: None Pulmonary: reports: Asthma Gastrointestinal: reports: GERD Urinary: reports: None Neuro: reports: Headaches Musculoskeletal: reports: None Endocrine/Autoimmune: reports: None Blood Disorders: reports: Anemia Skin: reports: None Smoking Status: Never smoker Psychosocial: reports: No issues indicated History of Cancer?: No - Surgical History Gynecologic: reports: Oophrectomy Exam General: Alert, Oriented x3, Cooperative Dental: WNL Mouth Openin Fingerbreadth Neck Mobility: Normal Mallampati classification: II Respiratory: Lungs clear Cardiovascular: Regular rate Neurological: Normal speech Mental/Cognitive Status: Alert/Oriented X3, Normal for patient Cognitive Status: Within normal limits Plan Anesthesia Type: General, Transverse Abdominis Plane (TAP) Block Consent for Procedure(s) Verified and Reviewed: Yes Code Status: Attempt Resuscitation ASA classification: 2-Mild systemic disease Is this case an emergency?: No
[2021-06-15] MEDS ORDERED: BUPIVACAINE 0.25% PF 10 ML VIAL ONE (07:23)
[2021-06-15] MEDS ORDERED: LIDOCAINE MPF 2%-EPI 1:200000 20 ML VIAL ONE (07:23)
[2021-06-15] MEDS ORDERED: ACETAMINOPHEN 500 MG TABLET PO ONE (07:30)
[2021-06-15] MEDS ORDERED: CELECOXIB 100 MG CAPSULE PO ONE (07:30)
[2021-06-15] MEDS ORDERED: GABAPENTIN 400 MG CAPSULE ONE (07:30)
[2021-06-15] MEDS ORDERED: MIDAZOLAM 2 MG/2 ML VIAL ONE (07:35)
[2021-06-15] MEDS ORDERED: LACTATED RINGERS 1,000 ML IV SCH (08:00)
[2021-06-15] MEDS ORDERED: ceFAZolin 1 GM VIAL ONE (08:18)
[2021-06-15] MEDS ORDERED: ROCURONIUM 50 MG/5 ML VIAL ONE ×2 (08:20→10:03)
[2021-06-15] MEDS ORDERED: VASOPRESSIN 20 UNIT/ML VIAL IVP ONE ×2 (08:40)
[2021-06-15] MEDS ORDERED: BUPIVACAINE 0.25% PF 10 ML VIAL SUBQ ONE (08:44)
[2021-06-15] MEDS ORDERED: LIDOCAINE MPF 2%-EPI 1:200000 20 ML VIAL SUBQ ONE (08:44)
[2021-06-15] MEDS ORDERED: HYDROmorphone 1 MG/ML CARPUJECT ONE (09:12)
[2021-06-15] MEDS ORDERED: KETAMINE 500 MG/10 ML VIAL ONE (09:15)
--- NOTE | 2021-06-15 09:21 | PHARMACY PROGRESS NOTE ---
- Best Possible Medication History Admit Date and Time: 06/14/211913 Processed by: Nursing Medication History completed: Yes Secondary Source(s): Insurance records As the person ultimately responsible for medication therapy, providers are able to order a medication from an existing home medication list in [facility] via the "Reconcile Routine" prior to Confirmation of that medication by call center support representative. Such practice is discouraged except when the physician, in their clinical judgment, deems that a medical need exists for a medication without regard to previous use.
[2021-06-15] MEDS ORDERED: ePHEDrine 50 MG/ML VIAL IVP ONE (09:32)
[2021-06-15] MEDS ORDERED: ROPIVACAINE 0.5% PF 20 ML AMPULE ONE (10:07)
[2021-06-15 12:40] LABS: HCT - HEMATOCRIT 29.3 % (37.0-47.0); HGB - HEMOGLOBIN 8.6 g/dL (12.0-16.0); MEAN CORPUSCULAR HEMOGLOBIN 20.1 pg (27.0-31.0); MEAN CORPUSCULAR HGB CONC 29.4 g/dL (32.0-36.0); MEAN CORPUSCULAR VOLUME 68.6 fL (81.0-99.0); RED BLOOD COUNT 4.27 10^6/uL (4.20-5.40); RED CELL DISTRIBUTION WIDTH 22.4 % (12.0-15.0); WHITE BLOOD COUNT 21.3 x10^3/uL (4.8-10.8)
[2021-06-15] MEDS ORDERED: SODIUM CHLORIDE 0.9% 10 ML VIAL IVP ONE (12:45)
[2021-06-15] MEDS ORDERED: DEXAMETHASONE 4 MG/ML VIAL ONE (12:46)
[2021-06-15] MEDS ORDERED: ONDANSETRON ODT 4 MG TABLET TL PRN (13:07)
[2021-06-15] MEDS ORDERED: SIMETHICONE CHEW 80 MG TABLET PO PRN (13:07)
[2021-06-15] MEDS ORDERED: SCOPOLAMINE PATCH TOP PRN (13:07)
--- NOTE | 2021-06-15 13:07 | OPERATIVE REPORT ---
Operative Report - General Admit Date: 06/14/21 Planned Procedure: Abdominal myomectomy with endometrial biopsy and possible hysterectomy. Pre-Op Diagnosis: Abnormal uterine bleeding, uterine fibroids Procedure Performed: Abdominal myomectomy, endometrial biopsy Post Op Diagnosis: Abnormal uterine bleeding, uterine fibroids - Procedure Note Primary Surgeon: Pato García MD Secondary Surgeon: Winnie Waters MD Anesthesia Provider: Cynthia Johnson Anesthesia Technique: General ET tube Pathology: Endometrial biopsy Uterine fibroids IV Fluids (mL): 2,000 Estimated Blood Loss (mL): 2,000 Urine Output (mL): 500 Complications: None - Other Other Information/Narrative: Counseling Patient was counseled on the risk, benefits, alternatives of abdominal myomectomy. She had already received 2 units of PRBC prior to the surgery. We discussed the risk of further bleeding and that a hysterectomy was likely a less bloody procedure given her already existing anemia. Patient declined and wanted a myomectomy. She desires to have children and wanted to preserve the possibility of fertility. We discussed that she had a low risk of fertility given her age and lab abnormalities. Nonetheless, patient wished to proceed. We also discussed the possibility of finding abnormal uterine cells, and although she had 2 negative samplings last year, had been approximately 9 months since last sampling due to her previous surgery date being postponed due to COVID. We also would discussed the risk of damage to other organs, inability to maintain enough uterine tissue, risk of damage to other organs while injury, risk of infection. Patient discussed these risks and said she was willing to proceed with surgery. Technique Patient was taken to the operating room where a timeout was performed the patient was given preoperative antibiotics. General endotracheal anesthesia was found to be adequate. Patient was positioned on the operating table in dorsal lithotomy position in [facility]. A bear hugger was placed and pressure points were padded. Patient was then prepped and draped in the normal sterile fashion using Hibiclens vaginally and ChloraPrep abdominally. A sterile speculum was used to visualize the cervix which was then grasped with a single-tooth tenaculum. The uterus was sounded and found to be mildly dilated allowing the passage of a endometrial Pipelle. A sample was taken and the uterus was found to be hemostatic. Sterile attire was exchanged for attention was then turned to the abdominal portion of the procedure. A pfannenstiel skin incision was then made with the scalpel and upon entering the abdomen, carried through to the underlying layer of fascia. The fascia was incised in the midline and the incision extended laterally with the Irwin scissors. The superior aspect of the facial incision was then grasped with the Sue clamps, elevated and the underlying rectus muscles dissected off sharply. Attention was then turned to the inferior aspect of this incision which in a similar fashion was grasped, elevated with the Sue clamps and the rectus muscle dissected off sharply. The rectus muscles were in the midline. The peritoneum identified, grasped with the pick-ups and entered sharply with the Metzenbaum scissors. Upon entry into the abdomen, a large uterus was noted. The bowel was packed with wet sponges. The Maryjo retractor was placed extending the opening of the sidewalls and the bladder blade inferiorly. Good visualization of the uterus was achieved. Dilute vasopressin was then injected into the uterus above the fibroid. The Bovie device was used to open an incision into the cavity of the fibroid. This fibroid was painstakingly dissected off the uterine tissue, but took up most of the uterine mass and extended into the endometrium. Using combination of traction and countertraction, sharp and blunt dissection, the mass of fibroids was eventually removed. This was approximately 12 cm in diameter of a heterogenous appearing mass of fibroid tissue. The uterus was closed in 3 layers of 0 Vicryl. The serosal edge was folded inward using a baseball stitch. Due to the irregular appearance of the fibroid, sterile water was used to rinse the abdomen. Seprafilm was then placed over the incision to help prevent adhesions. The peritoneum was then closed with a running suture of 2-0 Vicryl. The muscles were then reapproximated with a running suture of 2-0 Vicryl. Hemostasis was noted on the abdominal muscles. Using an 0 Vicryl, the rectus fascia was then closed in a running fashion. The subcutaneous tissue was closed in a running suture of 2-0 Vicryl. The skin was closed with a running suture of 4-0 Monocryl. Sponge, needle and instrument counts were correct, and the patient was taken to the PACU in stable condition. Due to the bleeding during the procedure as well as the previous existing anemia, patient was transfused 2 units of packed red blood cells during the procedure. I appreciate the assistance of Dr. Waters during this procedure, and her assistance in retraction, visualization, dissection, and overall assistance during the case were instrumental to the patient's wellbeing.
[2021-06-15] MEDS ORDERED: LACTATED RINGERS 700 ML IV ONE (13:08)
[2021-06-15] MEDS ORDERED: fentaNYL 100 MCG/2 ML VIAL ONE (14:06)
[2021-06-15] MEDS: KETOROLAC 30 MG/ML VIAL IVP SCH ×2 (14:53→20:05)
[2021-06-15] MEDS: LACTATED RINGERS 1,000 ML IV SCH (14:54)
[2021-06-15] MEDS: ACETAMINOPHEN 500 MG TABLET PO SCH ×2 (14:57→21:55)
[2021-06-15] MEDS: oxyCODONE 5 MG TABLET PO PRN (14:57)
--- NOTE | 2021-06-15 16:22 | ANESTHESIA POST OP EVALUATION ---
Anesthesia Post Eval - Post Anesthesia Eval Vitals: Last Vital Signs Temp 36.9 C 06/15/21 16:00 Pulse 101 H 06/15/21 16:00 Resp 20 06/15/21 16:00 BP 120/69 06/15/21 16:00 Pulse Ox 99 06/15/21 16:00 CV Function Including HR & BP: Stable Pain Control: Satisfactory Nausea & Vomiting: Negative Mental Status: Baseline Respiratory Status: Airway Patent Hydration Status: Satisfactory Anesthesia Complications: None
[2021-06-15] MEDS: HYDROmorphone 1 MG/ML CARPUJECT IVP PRN (18:23)
[2021-06-15 19:05] LABS: HCT - HEMATOCRIT 30.1 % (37.0-47.0); HGB - HEMOGLOBIN 8.8 g/dL (12.0-16.0)
[2021-06-15] MEDS: DOCUSATE SODIUM 100 MG CAPSULE PO SCH (21:55)
[2021-06-16] MEDS: LACTATED RINGERS 1,000 ML IV SCH ×2 (00:15→17:05)
[2021-06-16] MEDS: SODIUM CHLORIDE FLUSH 0.9% 10 ML SYRINGE IVP SCH ×4 (00:17→23:53)
[2021-06-16] MEDS: KETOROLAC 30 MG/ML VIAL IVP SCH ×2 (03:25→08:20)
[2021-06-16] MEDS: oxyCODONE 5 MG TABLET PO PRN ×4 (05:16→17:10)
[2021-06-16] MEDS: ACETAMINOPHEN 500 MG TABLET PO SCH ×3 (05:23→23:03)
--- NOTE | 2021-06-16 06:25 | PROVIDER PROGRESS NOTE ---
Subjective - Prog Note Date Prog Note Date: 06/16/21 Prog Note Time: 08:30 - Subjective Pt reports feeling: Improved Subjective: Subjective: Patient doing well overall. Has not ambulated. Pain subjectively 8/10, but this seems to be her baseline. Passing gas. No significant vaginal bleeding. Peripads changed twice, 1 with a small amount of bleeding, once with moderate. Olmedo remains in place. Not eating much yet. Objective: General: Alert, oriented, no acute distress. Appears calm and does not appear to be in pain. Pulmonary: Clear to auscultation bilaterally. Cardio: Regular rate and rhythm. No tachycardia. Abdomen: Soft, appropriately tender around incision. Bowel sounds normal. Labs: A.m. CBC showed a hemoglobin and hematocrit of 6.8/23, decreased from yesterday at 8.8/30. WBC down from 21-14 today. Assessment and plan: 46-year-old G0 status post abdominal myomectomy 1. Abnormal uterine bleeding: -Much improved. Current level bleeding expected after myomectomy. 2. Postop day 1 -Discussed results with patient today and provided pictures. -Encouraged ambulation. Patient has not been out of bed, so this is inhibiting her pain control and recovery. Set expectations to move throughout the day. -Olmedo out this afternoon when ambulatory -Attempt pain control with oral pain medications. Patient does appear to be intermittently somnolent due to the opioids, and did have decreasing saturations. This may be combination of opioids and an aspect of sleep apnea. Will attempt to get better pain control with activity. -Abdominal pain appears within normal limits. Complaining of gas pain more than incisional pain. Continue as needed simethicone. 3. Acute on chronic blood loss anemia -Transfusing 2 units of PRBCs today. Received 2 units preoperatively, 2 units intraoperatively. -Hemogram 4 hours after blood transfusion completes. 4. Asthma -Albuterol inhaler as needed 5. Obesity -Discussed risk of wound infection importance of keeping it clean. Objective - Vital Signs/Intake & Output Vital Signs: Vital Signs x48h Temp Pulse Resp BP Pulse Ox 06/16/21 00:03 98.2 F 89 16 117/69 97 Intake & Output: Intake & Output 06/13/21 06/14/21 06/15/21 06/16/21 23:59 23:59 23:59 23:59 Intake Total 350 3347.118 4232.667 Output Total 185 900 Balance 350 1588.333 411.667 - Lab Results Fish Bones: 06/16/21 07:23 Other Labs: Lab Results x24hrs 06/15/21 06/15/21 06/14/21 Range/Units 19:00 12:19 19:35 WBC 21.3 H (4.8-10.8) x10^3/uL RBC 4.27 (4.20-5.40) 10^6/uL Hgb 8.8 L 8.6 L (12.0-16.0) g/dL Hct 30.1 L 29.3 L (37.0-47.0) % MCV 68.6 L (81.0-99.0) fL MCH 20.1 L (27.0-31.0) pg MCHC 29.4 L (32.0-36.0) g/dL RDW 22.4 H (12.0-15.0) % Plt Count 305 (130-450) 10^3/uL MPV 10.0 (7.9-10.8) fL Blood Type O POSITIVE Antibody Screen NEGATIVE Crossmatch IS Only See Detail
[2021-06-16 07:30] LABS: BASOPHILS % (AUTO) 0.1 %; HCT - HEMATOCRIT 23.4 % (37.0-47.0); LYMPHOCYTES # (AUTO) 1.2 10^3/uL (1.5-3.5); LYMPHOCYTES % (AUTO) 8.4 %; MEAN CORPUSCULAR HEMOGLOBIN 19.8 pg (27.0-31.0); MEAN CORPUSCULAR HGB CONC 29.1 g/dL (32.0-36.0); MEAN PLATELET VOLUME 9.7 fL (7.9-10.8); MONOCYTES # (AUTO) 0.8 10^3/uL (0.0-1.0); NEUTROPHILS % (AUTO) 85.1 %; PLT - PLATELET COUNT 283 10^3/uL (130-450); RED BLOOD COUNT 3.44 10^6/uL (4.20-5.40); RED CELL DISTRIBUTION WIDTH 21.9 % (12.0-15.0); WHITE BLOOD COUNT 14.1 x10^3/uL (4.8-10.8)
[2021-06-16 07:34] LABS: HGB - HEMOGLOBIN 6.8 g/dL (12.0-16.0)
[2021-06-16] MEDS: DOCUSATE SODIUM 100 MG CAPSULE PO SCH ×2 (08:20→21:02)
[2021-06-16] MEDS: IBUPROFEN 600 MG TABLET PO SCH ×2 (12:05→17:10)
[2021-06-16] MEDS ORDERED: ALBUTEROL 1 PUFF INH PRN (12:20)
[2021-06-16] MEDS: ENOXAPARIN 40 MG/0.4 ML SYRINGE SUBQ SCH (13:08)
[2021-06-16 16:12] LABS: HCT - HEMATOCRIT 27.4 % (37.0-47.0); HGB - HEMOGLOBIN 8.4 g/dL (12.0-16.0); MEAN CORPUSCULAR HEMOGLOBIN 21.9 pg (27.0-31.0); MEAN CORPUSCULAR HGB CONC 30.7 g/dL (32.0-36.0); MEAN CORPUSCULAR VOLUME 71.4 fL (81.0-99.0); MEAN PLATELET VOLUME 9.9 fL (7.9-10.8); RED BLOOD COUNT 3.84 10^6/uL (4.20-5.40); WHITE BLOOD COUNT 14.4 x10^3/uL (4.8-10.8)
[2021-06-16] MEDS: HYDROmorphone 1 MG/ML CARPUJECT IVP PRN (20:57)
[2021-06-16] MEDS: ONDANSETRON ODT 4 MG TABLET TL PRN (21:11)
[2021-06-17] MEDS: IBUPROFEN 600 MG TABLET PO SCH ×4 (00:12→18:20)
[2021-06-17] MEDS: LACTATED RINGERS 1,000 ML IV SCH (01:37)
[2021-06-17] MEDS: oxyCODONE 5 MG TABLET PO PRN ×2 (01:48→05:59)
[2021-06-17 05:41] LABS: BASOPHILS # (AUTO) 0.1 10^3/uL (0.0-0.1); BASOPHILS % (AUTO) 0.4 %; EOSINOPHILS # (AUTO) 0.3 10^3/uL (0.0-0.7); EOSINOPHILS % (AUTO) 2.6 %; HCT - HEMATOCRIT 24.8 % (37.0-47.0); HGB - HEMOGLOBIN 7.4 g/dL (12.0-16.0); LYMPHOCYTES # (AUTO) 3.1 10^3/uL (1.5-3.5); LYMPHOCYTES % (AUTO) 27.9 %; MEAN CORPUSCULAR HEMOGLOBIN 21.6 pg (27.0-31.0); MEAN CORPUSCULAR HGB CONC 29.8 g/dL (32.0-36.0); MEAN CORPUSCULAR VOLUME 72.5 fL (81.0-99.0); MEAN PLATELET VOLUME 9.7 fL (7.9-10.8); MONOCYTES # (AUTO) 0.8 10^3/uL (0.0-1.0); MONOCYTES % (AUTO) 7.2 %; NEUTROPHILS # (AUTO) 6.8 10^3/uL (1.5-6.6); NEUTROPHILS % (AUTO) 61.5 %; PLT - PLATELET COUNT 243 10^3/uL (130-450); RED BLOOD COUNT 3.42 10^6/uL (4.20-5.40); RED CELL DISTRIBUTION WIDTH 23.4 % (12.0-15.0); WHITE BLOOD COUNT 11.1 x10^3/uL (4.8-10.8)
[2021-06-17 05:42] LABS: SLIDE REVIEW? Indicated
[2021-06-17] MEDS: ACETAMINOPHEN 500 MG TABLET PO SCH ×2 (05:59→14:23)
[2021-06-17 06:09] LABS: PLATELET ESTIMATE, MANUAL NORMAL (130-450,000) (NORMAL); PLATELET MORPHOLOGY NORMAL APPEARANCE (NORMAL); WBC MORPHOLOGY (MULTIPLE) NORMAL APPEARANCE (NORMAL)
[2021-06-17] MEDS: DOCUSATE SODIUM 100 MG CAPSULE PO SCH (08:57)
[2021-06-17] MEDS: SODIUM CHLORIDE FLUSH 0.9% 10 ML SYRINGE IVP SCH ×2 (08:57→18:20)
[2021-06-17] MEDS: ENOXAPARIN 40 MG/0.4 ML SYRINGE SUBQ SCH (08:58)
[2021-06-17] MEDS ORDERED: buPROPion XL 150 MG TABLET PO SCH ×2 (09:00)
--- NOTE | 2021-06-17 09:18 | Discharge Plan ---
Discharge Plan Problem Reviewed?: Yes Disposition: Home, Self Care Condition: Good Prescriptions: oxyCODONE [Roxicodone] 2.5 - 5 mg PO Q4HR PRN #20 tablet PRN Reason: Pain Ibuprofen [Motrin] 600 mg PO Q6HR #60 tablet Acetaminophen [Tylenol] 1,000 mg PO Q8H #60 tablet Diet: Regular Shower Restrictions: No Instruction Topics: Abdomen Surg Dc No Smoking: If you smoke, Please STOP! Call for help. Follow-up with: Pato García MD [Provider Admit Priv/Credential] -
--- NOTE | 2021-06-17 09:20 | PROVIDER PROGRESS NOTE ---
Subjective - Prog Note Date Prog Note Date: 06/17/21 Prog Note Time: 11:06 - Subjective Subjective: Subjective Patient reports she is doing well. Denies heavy bleeding. Ambulating, although minimally. Pelvic and abdominal pain controlled with medications. Tolerating oral intake. Diet: Regular. Voiding without difficulty. Passing flatus. Denies BM. Denies feeling lightheaded, dizzy or excessively fatigued. Objective General: Alert, oriented, no apparent distress. Cardiovascular: Regular rate. Regular rhythm. Lungs: No increased work of breathing. Abdomen: Soft, appropriately tender. Bowel sounds normal. Assessment and Plan 46-year-old G0 status post abdominal myomectomy 1. Abnormal uterine bleeding: -Much improved. Current level bleeding expected after myomectomy. 2. Postop day 2 -Some abulation yesterday afternoon/ evening. Tolerated well. -Continue pain control with oral pain medications. -Abdominal pain appears within normal limits. -Plan for discharge later today if pain is appropriately controlled and H/H stable. 3. Acute on chronic blood loss anemia -H/H from 8.4 to 7.4, will repeat this afternoon. If stable, can likely discharge. 4. Asthma -Albuterol inhaler as needed 5. Obesity -Discussed risk of wound infection importance of keeping it clean. Objective - Vital Signs/Intake & Output Vital Signs: Vital Signs x48h Temp Pulse Resp BP Pulse Ox 06/17/21 08:20 97.5 F L 93 18 128/70 98 06/17/21 05:00 97.9 F 88 18 132/67 H 95 Intake & Output: Intake & Output 06/14/21 06/15/21 06/16/21 06/17/21 23:59 23:59 23:59 23:59 Intake Total 350 5383.351 4602.667 1953.333 Output Total 185 3100 1650 Balance 350 0450.752 3487.667 303.333 - Lab Results Fish Bones: 06/17/21 05:22 Other Labs: Lab Results x24hrs 06/17/21 06/16/21 06/14/21 Range/Units 05:22 16:08 19:35 WBC 11.1 H 14.4 H (4.8-10.8) x10^3/uL RBC 3.42 L 3.84 L (4.20-5.40) 10^6/uL Hgb 7.4 L 8.4 L (12.0-16.0) g/dL Hct 24.8 L 27.4 L (37.0-47.0) % MCV 72.5 L 71.4 L (81.0-99.0) fL MCH 21.6 L 21.9 L (27.0-31.0) pg MCHC 29.8 L 30.7 L (32.0-36.0) g/dL RDW 23.4 H 23.0 H (12.0-15.0) % Plt Count 243 275 (130-450) 10^3/uL MPV 9.7 9.9 (7.9-10.8) fL Neut # (Auto) 6.8 H (1.5-6.6) 10^3/uL Lymph # (Auto) 3.1 (1.5-3.5) 10^3/uL White # (Auto) 0.8 (0.0-1.0) 10^3/uL Eos # (Auto) 0.3 (0.0-0.7) 10^3/uL Baso # (Auto) 0.1 (0.0-0.1) 10^3/uL Absolute Nucleated RBC 0.00 x10^3/uL Nucleated RBC % 0.0 /100WBC Manual Slide Review Indicated WBC Morphology NORMAL APPEARANCE (NORMAL) Platelet Estimate NORMAL (130-450,000) (NORMAL) Platelet Morphology NORMAL APPEARANCE (NORMAL) RBC Morph Micro Appear 2+ ANISOCYTOSIS (NORMAL) Blood Type O POSITIVE Antibody Screen NEGATIVE Crossmatch IS Only See Detail
[2021-06-17 14:22] LABS: HCT - HEMATOCRIT 25.7 % (37.0-47.0); HGB - HEMOGLOBIN 7.7 g/dL (12.0-16.0); MEAN CORPUSCULAR HEMOGLOBIN 21.9 pg (27.0-31.0); MEAN PLATELET VOLUME 9.4 fL (7.9-10.8); RED BLOOD COUNT 3.52 10^6/uL (4.20-5.40); RED CELL DISTRIBUTION WIDTH 23.9 % (12.0-15.0); WHITE BLOOD COUNT 10.9 x10^3/uL (4.8-10.8)
--- NOTE | 2021-06-17 15:03 | DISCHARGE SUMMARY ---
Discharge Summary Condition at Discharge: Good Discharge Disposition: Home, Self Care - ALLERGIES Allergies/Adverse Reactions: Allergies Allergy/AdvReac Type Severity Reaction Status Date / Time No Known Drug Allergies Allergy Verified 03/19/21 14:44 - MEDICATIONS Home Medications: Ambulatory Orders Medication Instructions Recorded Confirmed Albuterol Sulfate [Albuterol 2 puffs IH Q4HR PRN #1 hfa.aer.ad 07/14/14 06/10/21 Sulfate Hfa] Fluticasone [Flonase] 1 sprays CLARE BID PRN 09/07/20 06/10/21 Meloxicam [Mobic] 15 mg PO DAILY PRN 09/07/20 06/10/21 Montelukast [Singulair] 10 mg PO QPM 09/07/20 06/10/21 Omeprazole [PriLOSEC] 20 mg PO DAILY 09/07/20 06/10/21 buPROPion [Wellbutrin Xl] 300 mg PO DAILY 09/07/20 06/15/21 ARIPiprazole [Abilify] 5 mg PO DAILY 03/11/21 06/10/21 DULoxetine [Cymbalta] 30 mg PO DAILY 03/11/21 06/10/21 Budesonide/Formoterol Fumarate 2 puffs PO BID 06/10/21 06/10/21 [Symbicort 160-4.5 Mcg Inhaler] Acetaminophen [Tylenol] 1,000 mg PO Q8H #60 tablet 06/17/21 Ibuprofen [Motrin] 600 mg PO Q6HR #60 tablet 06/17/21 oxyCODONE [Roxicodone] 2.5 - 5 mg PO Q4HR PRN #20 tablet 06/17/21 - LABS Result Diagrams: 06/17/21 14:15
[2021-06-17 15:37] VITALS: BP 128/72
[2021-06-17] MEDS: ONDANSETRON ODT 4 MG TABLET TL PRN (18:34)
--- NOTE | 2021-06-24 16:45 | DISCHARGE SUMMARY ---
Discharge Summary Admit Date: 06/14/21 Discharge Date: 06/17/21 Discharging Provider: Pato García MD Code Status: Attempt Resuscitation Condition at Discharge: Good Discharge Disposition: 01 Home, Self Care - DIAGNOSES Admission Diagnoses: Abnormal uterine bleeding Uterine fibroids Chronic blood loss anemia Discharge Diagnoses with Status of Each Condition: Abnormal uterine bleeding: Status post abdominal myomectomy Uterine fibroids: Status post abdominal myomectomy Acute on chronic blood loss anemia: Stable after blood transfusion - HPI History of Present Illness: Patient doing well postoperatively heavy bleeding. Ambulating although minimally. Pelvic and abdominal pain is controlled with medications. Tolerating regular diet and voiding without difficulty. Passing flatus. Physical exam General: Alert, oriented, no acute distress Cardiovascular: Regular rate and rhythm Pulmonary: Lung sounds normal bilaterally without adventitious breath sounds. No increased work of breathing Abdomen soft, appropriate tender, bowel sounds normal. Incision clean dry, dry, intact. - HOSPITAL COURSE Hospital Course: Patient was admitted for planned abdominal myomectomy for heavy, abnormal uterine bleeding secondary to uterine fibroids. At her preoperative lab visit, she was noted to have a significant drop in her H/H since previous labs were done, so she was brought in prior to the procedure for blood transfusion as abdominal myomectomies are often associated with a relative large blood loss. Surgery was difficult due to the size of the fibroid, and she received a total of 4 additional units of PRBCs. She had removal of a 12 cm fibroid weighing approximately 800 g. On postop day 2, her vitals were stable and she was having adequate pain control tolerating p.o. medications and was discharged in good condition. - ALLERGIES Allergies/Adverse Reactions: Allergies Allergy/AdvReac Type Severity Reaction Status Date / Time No Known Drug Allergies Allergy Verified 03/19/21 14:44 - MEDICATIONS Home Medications: Ambulatory Orders Medication Instructions Recorded Confirmed Albuterol Sulfate [Albuterol 2 puffs IH Q4HR PRN #1 hfa.aer.ad 07/14/14 06/10/21 Sulfate Hfa] Fluticasone [Flonase] 1 sprays CLARE BID PRN 09/07/20 06/10/21 Meloxicam [Mobic] 15 mg PO DAILY PRN 09/07/20 06/10/21 Montelukast [Singulair] 10 mg PO QPM 09/07/20 06/10/21 Omeprazole [PriLOSEC] 20 mg PO DAILY 09/07/20 06/10/21 buPROPion [Wellbutrin Xl] 300 mg PO DAILY 09/07/20 06/15/21 ARIPiprazole [Abilify] 5 mg PO DAILY 03/11/21 06/10/21 DULoxetine [Cymbalta] 30 mg PO DAILY 03/11/21 06/10/21 Budesonide/Formoterol Fumarate 2 puffs PO BID 06/10/21 06/10/21 [Symbicort 160-4.5 Mcg Inhaler] Acetaminophen [Tylenol] 1,000 mg PO Q8H #60 tablet 06/17/21 Ibuprofen [Motrin] 600 mg PO Q6HR #60 tablet 06/17/21 oxyCODONE [Roxicodone] 2.5 - 5 mg PO Q4HR PRN #20 tablet 06/17/21 - LABS Result Diagrams: 06/17/21 14:15 - FOLLOW UP Follow Up: In 2 weeks with [facility] - TIME SPENT Time Spent in Discharge (Minutes): 30
== END 2021-06-17 19:15 | disposition home or self-care (01) | DRG 742 ==
LOC: MS2 18:39 → SDS 18:39 → MS2 19:14 → UNDOADMOB 19:14 → OBSVTOIN 06-15 13:07 → UNDOADMOB 06-15 13:07 → MS2 06-15 13:07 → INTOOBSV 06-16 12:16 → OBSVTOIN 06-16 12:16 → UNDODISIN 06-17 19:15
PROVIDERS: ADMIT Obstetrics & Gynecology; ATTEND Obstetrics & Gynecology
PROC: 0UDB7ZX Extraction of Endometrium, Via Natural or Artificial Opening, Diagnostic (ICD-10-PCS; 2021-06-15)
PROC: 0UB90ZZ Excision of Uterus, Open Approach (ICD-10-PCS; principal; 2021-06-15 07:30)
DX: D25.9 Leiomyoma of uterus, unspecified (principal); D62 Acute posthemorrhagic anemia; Z68.41 Body mass index [BMI] 40.0-44.9, adult; N93.9 Abnormal uterine and vaginal bleeding, unspecified; J45.909 Unspecified asthma, uncomplicated; Z87.891 Personal history of nicotine dependence; E66.01 Morbid (severe) obesity due to excess calories
CPT/HCPCS: 36415; 36430; 58100; 58146; 81025; 83036; 85014; 85018; 85025; 85027; 86850; 86900; 86901; 86920; 87635; 88305; 96374; A9270; G0378; J1170; J1650; J3490; J7120; P9016; Q0162

== ENCOUNTER 2021-09-21 09:22 | Outpatient (CLI) | payer MEDICAID ==
[2021-09-21 10:45] LABS: HCT - HEMATOCRIT 36.1 % (37.0-47.0); HGB - HEMOGLOBIN 10.2 g/dL (12.0-16.0); MEAN CORPUSCULAR HEMOGLOBIN 18.8 pg (27.0-31.0); MEAN CORPUSCULAR HGB CONC 28.3 g/dL (32.0-36.0); MEAN CORPUSCULAR VOLUME 66.5 fL (81.0-99.0); MEAN PLATELET VOLUME 9.2 fL (7.9-10.8); RED BLOOD COUNT 5.43 10^6/uL (4.20-5.40); RED CELL DISTRIBUTION WIDTH 18.2 % (12.0-15.0)
[2021-09-21] MEDS ORDERED: ALBUTEROL 1 PUFF INH STA (10:58)
== END 2021-09-21 09:23 | disposition home or self-care (01) ==
LOC: RT 09:22
PROVIDERS: ATTEND Internal Medicine
DX: J45.40 Moderate persistent asthma, uncomplicated (principal); D64.9 Anemia, unspecified; Z09 Encounter for follow-up examination after completed treatment for conditions other than malignant neoplasm
CPT/HCPCS: 36415; 85027; 94060; 94729

== ENCOUNTER 2022-06-01 08:00 | Outpatient (CLI) | payer MEDICAID ==
[2022-06-01 18:49] LABS: FECAL OCCULT BLOOD (FIT) NEGATIVE (NEGATIVE)
== END 2022-06-01 23:59 | disposition home or self-care (01) ==
LOC: LAB.WCP 08:00
PROVIDERS: ATTEND Physician Assistant
DX: R19.7 Diarrhea, unspecified (principal); K62.5 Hemorrhage of anus and rectum
CPT/HCPCS: 82274; 83993; 87045; 87046; 87427

== ENCOUNTER 2022-10-28 07:19 | Day surgery (SDC) | payer MEDICAID ==
[2022-10-28] MEDS ORDERED: LACTATED RINGERS 1,000 ML IV ONE ×2 (07:23→09:21)
[2022-10-28 07:40] LABS: HCG UR QUAL NEGATIVE
[2022-10-28] MEDS ORDERED: PROPOFOL 500 MG/50 ML 500 MG/50 ML VIAL ONE ×2 (07:52→09:06)
--- NOTE | 2022-10-28 08:15 | ANESTHESIA ---
Pre-Anesthesia VS, & Labs - Diagnosis EGD and colonoscopy - Procedure GERD, Anemia Vital Signs: Temp Pulse Resp BP Pulse Ox O2 Flow Rate 36.0 C L 97 18 144/108 H 97 10/28/22 07:31 10/28/22 07:31 10/28/22 07:31 10/28/22 07:31 10/28/22 07:31 Height: 5 ft 5.5 in Weight (kg): 137 kg Body Mass Index: 49.4 BMI Classification: Morbidly Obese - NPO Last Fluid Intake: 0500 clear juice - Is Patient ?: No Home Medications and Allergies Home Medications: Ambulatory Orders Omeprazole 20 mg PO DAILY 10/28/22 Fluticasone [Flonase] 1 sprays CLARE BID PRN 09/07/20 Budesonide/Formoterol Fumarate [Symbicort 160-4.5 Mcg Inhaler] 2 puffs PO BID 06/10/21 Omeprazole 20 mg PO DAILY 10/28/22 Allergies/Adverse Reactions: Allergies Allergy/AdvReac Type Severity Reaction Status Date / Time No Known Drug Allergies Allergy Verified 10/28/22 07:46 Anes History & Medical History - Anesthetic History Anesthesia Complications: reports: No previous complications - Medical History Cardiovascular: reports: None Pulmonary: reports: Asthma, Other Gastrointestinal: reports: GERD, Chronic diarrhea Urinary: reports: None Neuro: reports: Headaches Musculoskeletal: reports: Osteoarthritis, Chronic back pain Endocrine/Autoimmune: reports: None Blood Disorders: reports: Anemia Skin: reports: None Smoking Status: Never smoker Psychosocial: reports: No issues indicated History of Cancer?: No - Surgical History Gynecologic: reports: Oophrectomy, Other Exam General: Alert, Oriented x3, Cooperative, No acute distress Dental: WNL Mouth Openin Fingerbreadth Neck Mobility: Normal Mallampati classification: III Thyromental Distance: 4-6 cm Mental/Cognitive Status: Alert/Oriented X3, Normal for patient Plan Anesthesia Type: General, Total IV Consent for Procedure(s) Verified and Reviewed: Yes Code Status: Attempt Resuscitation ASA classification: 3-Severe systemic disease Is this case an emergency?: No
--- NOTE | 2022-10-28 08:27 | HISTORY & PHYSICAL EXAMINATION ---
Chief Complaint - Chief Complaint Chief Complaint: here for upper and lower endoscopy History of Present Illness - History Obtained From Records Reviewed: yes History obtained from: pt Exam Limitations: none - History of Present Illness HPI Comment/Other: more difficult to control gerd/ heartburn and irregular bowel habits with looser stool. History - Past Medical History Cardiovascular: reports: None Respiratory: reports: Asthma, Other Neuro: reports: Headaches Endocrine/Autoimmune: reports: None GI: reports: GERD, Chronic diarrhea CLIP BAKER: reports: Ovarian cysts, Fibroids : reports: None HEENT: reports: Chronic vision loss, Chronic sinusitis Psych: reports: Depression, ADD/ADHD Musculoskeletal: reports: Osteoarthritis, Chronic back pain Derm: reports: None MRSA Hx?: No - Past Surgical History /CLIP BAKER: reports: Oophrectomy, Other - POLST Patient has POLST: No Meds/Allgy - Home Medications Home Medications: Ambulatory Orders Medication Instructions Recorded Confirmed Albuterol Sulfate [Albuterol 2 puffs IH Q4HR PRN #1 hfa.aer.ad 07/14/14 10/28/22 Sulfate Hfa] Fluticasone [Flonase] 1 sprays CLARE BID PRN 09/07/20 10/25/22 Budesonide/Formoterol Fumarate 2 puffs PO BID 06/10/21 10/25/22 [Symbicort 160-4.5 Mcg Inhaler] Omeprazole 20 mg PO DAILY 10/28/22 10/28/22 - Allergies Allergies/Adverse Reactions: Allergies Allergy/AdvReac Type Severity Reaction Status Date / Time No Known Drug Allergies Allergy Verified 10/28/22 07:46 Review of Systems - Other Findings Other Findings: 10 pt ros as above otherwise unremarkable Exam - Vital Signs Vital Signs: Vital Signs x48h Temp Pulse Resp BP Pulse Ox 10/28/22 07:31 36.0 C L 97 18 144/108 H 97 - Physical Exam General Appearance: positive: No acute distress, Alert Eyes Bilateral: positive: PERRL, EOMI ENT: positive: No signs of dehydration Neck: positive: No JVD, Trachea midline Respiratory: positive: No respiratory distress Cardiovascular: positive: Regular rate & rhythm Abdomen: positive: No distention Neurologic/Psychiatric: positive: Oriented x3 Conclusion/Plan - Problem List (1) GERD (gastroesophageal reflux disease) Conclusion/Plan: plan egd with biopsies and colonoscopy with biopsies. irregular bowel habits and concern for colitis parq held and consent obtained
--- NOTE | 2022-10-28 09:32 | ANESTHESIA POST OP EVALUATION ---
Anesthesia Post Eval - Post Anesthesia Eval Vitals: Last Vital Signs Temp 36.3 C L 10/28/22 09:20 Pulse 75 10/28/22 09:20 Resp 16 10/28/22 09:20 BP 128/66 10/28/22 09:20 Pulse Ox 98 10/28/22 09:20 O2 Flow Rate CV Function Including HR & BP: Stable Pain Control: Satisfactory Nausea & Vomiting: Negative Mental Status: Baseline Respiratory Status: Airway Patent Hydration Status: Satisfactory Anesthesia Complications: None
[2022-10-28 10:12] VITALS: O2SAT 98
[2022-10-28 11:02] VITALS: BP 127/77
== END 2022-10-28 07:20 | disposition home or self-care (01) ==
LOC: SDS 07:19
PROVIDERS: ATTEND Surgery
PROC: 0DB68ZX Excision of Stomach, Via Natural or Artificial Opening Endoscopic, Diagnostic (ICD-10-PCS; 2022-10-28)
PROC: 0DBG8ZX Excision of Left Large Intestine, Via Natural or Artificial Opening Endoscopic, Diagnostic (ICD-10-PCS; 2022-10-28)
PROC: 0DBP8ZX Excision of Rectum, Via Natural or Artificial Opening Endoscopic, Diagnostic (ICD-10-PCS; 2022-10-28)
PROC: 0DBF8ZX Excision of Right Large Intestine, Via Natural or Artificial Opening Endoscopic, Diagnostic (ICD-10-PCS; 2022-10-28)
PROC: 0DB58ZX Excision of Esophagus, Via Natural or Artificial Opening Endoscopic, Diagnostic (ICD-10-PCS; principal; 2022-10-28 08:30)
PROC: 0DB78ZX Excision of Stomach, Pylorus, Via Natural or Artificial Opening Endoscopic, Diagnostic (ICD-10-PCS; 2022-10-28 08:30)
DX: K21.9 Gastro-esophageal reflux disease without esophagitis (principal); R19.4 Change in bowel habit; R19.5 Other fecal abnormalities; K31.7 Polyp of stomach and duodenum; K62.1 Rectal polyp; K64.4 Residual hemorrhoidal skin tags; E66.01 Morbid (severe) obesity due to excess calories; J45.909 Unspecified asthma, uncomplicated; D64.9 Anemia, unspecified; Z32.02 Encounter for pregnancy test, result negative; Z68.42 Body mass index [BMI] 45.0-49.9, adult
CPT/HCPCS: 43239; 45380; 81025; J7120

== ENCOUNTER 2023-07-20 08:38 | Outpatient (CLI) | payer OTHER, MEDICAID ==
--- NOTE | 2023-07-20 12:48 | XRAY Report ---
PROCEDURE: Knee 1-2V BL INDICATIONS: BILATERAL KNEE PAIN TECHNIQUE: 2 views of the right and left knees were acquired. COMPARISON: None. FINDINGS: Bones: No acute fractures or dislocations. No suspicious bony lesions. Small left suprapatellar e nthesophyte. Mild bilateral medial compartment joint space narrowing. Soft tissues: No knee joint effusion. No suspicious soft tissue calcifications. IMPRESSION: Minimal osteoarthrosis. No acute osseous abnormality. If symptoms persist or there is continued clini lucinda concern, further evaluation with MRI or CT may be helpful. Reviewed by: Norman Sun MD on 07/20/2023 12:46 PM PDT Approved by: Norman Sun MD on 07/20/2023 12:46 PM PDT Station ID: [id number]
== END 2023-07-20 08:39 | disposition home or self-care (01) ==
LOC: DI 08:38
PROVIDERS: ATTEND Internal Medicine Cardiovascular Disease
DX: M17.0 Bilateral primary osteoarthritis of knee (principal)

== ENCOUNTER 2023-10-20 09:58 | Outpatient (CLI) | payer MEDICAID ==
[2023-10-20 12:54] LABS: PROLACTIN 11.17 ng/mL
== END 2023-10-20 09:59 | disposition home or self-care (01) ==
LOC: LAB.N 09:58
PROVIDERS: ATTEND Internal Medicine
DX: N91.1 Secondary amenorrhea (principal); K52.9 Noninfective gastroenteritis and colitis, unspecified
CPT/HCPCS: 36415; 83001; 83002; 83498; 84146; 84702; 86364